=== PATIENT | male | born 1965 | race Caucasian/White ===

== ENCOUNTER 2020-11-08 13:00 | Outpatient (RCR) | payer OTHER, SELFPAY | END 2020-11-08 13:50 | disposition other institution (70) | LOC: HO.OT 13:00 | PROVIDERS: PCP Internal Medicine Geriatric Medicine; Visit Provider Emergency Medicine | DX: M65.9 Synovitis and tenosynovitis, unspecified (principal) | CPT/HCPCS: 97035; 97110; 97165 ==

== ENCOUNTER → 2022-07-31 15:29 | Outpatient (BNVA) | payer OTHER, SELFPAY | PROVIDERS: PCP Internal Medicine Geriatric Medicine; Visit Provider Urology | DX: R97.20 Elevated prostate specific antigen [PSA] (principal) | CPT/HCPCS: 99202 ==

== ENCOUNTER → 2022-09-11 13:17 | Outpatient (BNVA) | payer OTHER, SELFPAY | PROVIDERS: PCP Internal Medicine Geriatric Medicine; Visit Provider Urology | DX: R97.20 Elevated prostate specific antigen [PSA] (principal) | CPT/HCPCS: Q3014 ==

== ENCOUNTER 2022-11-13 10:18 | Outpatient (REF) | payer OTHER, SELFPAY ==
[2022-11-13 12:23] LABS: PSA,Total (Free>4and<10) 5.26 ng/mL (0.00-4.00)
[2022-11-14 10:13] LABS: Free Prostate Spec Ag 0.8 ng/mL; Percent Free Prostate Spec Ag 18 % (calc) (>25); Prostate Specific Ag Total 4.5 ng/mL (< OR = 4.0)
== END 2022-11-13 10:19 | disposition home or self-care (01) ==
LOC: HO.10HDL 10:18
PROVIDERS: Visit Provider Urology
DX: Z12.5 Encounter for screening for malignant neoplasm of prostate (principal); R97.20 Elevated prostate specific antigen [PSA]
CPT/HCPCS: 36415; 84153; 84154

== ENCOUNTER 2022-11-15 11:12 | Outpatient (REF) | payer OTHER, SELFPAY ==
[2022-11-15 11:37] VITALS: BP 140/90; PULSE 84; RESP 16; TEMP 36.7; O2SAT 97
[2022-11-15 11:40] VITALS: BMI 37.5
--- NOTE | 2022-11-15 12:18 | W.PM.OPN ---
Operative Note Operative Note Date of Service: 11/15/22 Narrative: Preoperative diagnosis: Elevated PSA Postoperative diagnosis: Elevated PSA Procedure: 1. transrectal ultrasound measurement of prostate 2. transrectal ultrasound-guided pudendal nerve block 3. transrectal ultrasound-guided prostate biopsy 12 core Surgeon: Dr. Reggie Scott Anesthetic: Local Indications for procedure: Elevated PSA 5.2 Procedure: After informed consent was verified, the patient was brought into the procedure area and lay left-hand side down on the table. Patient identity confirmed. Perioperative antibiotics confirmed. Safety pause time out performed. SHARON performed to dilate rectal sphincter Iodine 10cc with Gel was placed per rectum Ultrasound probe was placed per rectum The prostate was measured in 3 dimensions Total volume equals 65 gm No cystic structures were noted No calcifications were noted at the surgical margin The prostate was otherwise heterogenous on left side An ultrasound-guided pudendal nerve block was performed using 10 cc of 1% lidocaine. 8 cc was placed at the base and 2 cc of the apex. A 12 core biopsy was performed with 6 cores each side. Two cores were taken at the apex, mid and base. Cores were spaced between lateral and medial. He tolerated the procedure well. Was able to ambulate to bathroom after 5 minutes. Printed instructions regarding antibiotic use and common side effects such as low-grade temperature, potential infection and bleeding were given Pathology: 12 core prostate biopsy.
[2022-11-15 12:20] VITALS: BP 163/82; PULSE 88; RESP 16; O2SAT 97
== END 2022-11-15 11:13 | disposition home or self-care (01) ==
LOC: HO.MS 11:12
PROVIDERS: PCP Internal Medicine Geriatric Medicine; Visit Provider Urology
PROC: (CPT 55700; principal; 2022-11-15 12:00)
DX: R97.20 Elevated prostate specific antigen [PSA] (principal)
CPT/HCPCS: 55700; 76942; 88305; 88344

== ENCOUNTER → 2022-11-22 11:21 | Outpatient (BNVA) | payer OTHER, SELFPAY | PROVIDERS: PCP Internal Medicine Geriatric Medicine; Visit Provider Urology | DX: R97.20 Elevated prostate specific antigen [PSA] (principal) | CPT/HCPCS: Q3014 ==

== ENCOUNTER 2023-03-11 14:13 | Outpatient (REF) | payer OTHER, SELFPAY ==
[2023-03-11 16:18] LABS: Estimated Average Glucose 128 mg/dL; Hemoglobin A1c % 6.1 % (<6.0)
[2023-03-11 16:26] LABS: Alanine Aminotransferase 25 U/L (0-40); Albumin Level 4.4 g/dL (3.5-5.0); Alkaline Phosphatase 60 U/L (39-117); Anion Gap 13 (12-20); Aspartate Amino Transferase 18 U/L (5-37); Bilirubin Total 0.8 mg/dL (0.0-1.0); Blood Urea Nitrogen 15 mg/dL (9-16); Calcium 9.8 mg/dL (8.4-10.2); Carbon Dioxide 26 mmol/L (22-29); Chloride 106 mmol/L (96-108); Estimated Glomerular Filt Rate > 60; Glucose Random 132 mg/dL (60-115); Potassium 4.2 mmol/L (3.3-5.1); Sodium 141 mmol/L (135-145)
[2023-03-11 17:12] LABS: Creatinine Urine 102.92 mg/dL; Microalbum/Creatinine Ratio Ur 30.1 ug/mg cr (<30)
== END 2023-03-11 14:14 | disposition home or self-care (01) ==
LOC: HO.HHCL 14:13
PROVIDERS: Visit Provider Internal Medicine Geriatric Medicine
DX: E11.9 Type 2 diabetes mellitus without complications (principal); N40.0 Benign prostatic hyperplasia without lower urinary tract symptoms; H91.93 Unspecified hearing loss, bilateral; N53.19 Other ejaculatory dysfunction; R09.82 Postnasal drip; Z79.4 Long term (current) use of insulin; Z79.899 Other long term (current) drug therapy
CPT/HCPCS: 36415; 80053; 82043; 82570; 83036

== ENCOUNTER 2023-05-20 14:15 | Outpatient (REF) | payer OTHER, SELFPAY ==
[2023-05-20 18:22] LABS: PSA,Total (Free>4and<10) 5.72 ng/mL (0.00-4.00)
[2023-05-23 11:03] LABS: Free Prostate Spec Ag 0.4 ng/mL; Percent Free Prostate Spec Ag 8 % (calc) (>25); Prostate Specific Ag Total 5.1 ng/mL (< OR = 4.0)
== END 2023-05-20 14:16 | disposition home or self-care (01) ==
LOC: HO.LAB 14:15
PROVIDERS: Visit Provider Urology
DX: R97.20 Elevated prostate specific antigen [PSA] (principal); Z12.5 Encounter for screening for malignant neoplasm of prostate
CPT/HCPCS: 36415; 84153; 84154

== ENCOUNTER 2023-05-22 11:26 | Outpatient (AMB) | payer OTHER, SELFPAY ==
--- NOTE | 2023-05-22 11:38 | MHC.OFFVIS ---
Intake Intake Visit Reasons: 6m/PSA(set) Intake Note: Patient is Present for Follow Up psa Urology Medication: Finasteride, Tamsulosin Antibiotic Allergies: Penicillin Blood Thinners: Aspirin Allergies penicillamine Allergy (Unknown, Verified 05/22/23 11:42) hives penicillin G procaine Allergy (Unknown, Verified 05/22/23 11:42) hives penicillin V Allergy (Unknown, Verified 05/22/23 11:42) hives Penicillins [PENICILLINS] Allergy (Unknown, Verified 05/22/23 11:42) HIVES Medication List - Last Reconciled 05/22/23 by Reggie Scott MD aspirin (Adult Low Dose Aspirin) 81 mg PO DAILY blood sugar diagnostic (FreeStyle Lite Strips) As directed bupropion HCl 300 mg PO QAM buspirone 15 mg PO BID diazepam (Valium) 2 mg PO DAILY finasteride 5 mg PO DAILY 90 days hydroxyzine HCl 10 mg PO ONCE lancets (FreeStyle Lancets) As directed levofloxacin 500 mg PO daily 3 days losartan 50 mg PO DAILY metformin 1,000 mg PO BID multivitamin 1 tab PO DAILY omega 2-nmt-ouw-fish oil 1,000 mg (120 mg-180 mg) (Fish Oil) 1 cap PO DAILY omega-3 fatty acids-fish oil 360-1,200 mg caps PO pravastatin 80 mg PO BEDTIME tamsulosin 0.4 mg PO DAILY HPI HPI Comments History of Present Illness Details Hira is a pleasant male. He is a patient of Dr. Farley He is seen for the following urologic conditions - elevated PSA - BPH Biopsy no evidence of cancer PSA has fallen to 5.7 Keep on finasteride and repeat in 6 months Has stopped tamsulosin secondary to retrograde ejaculation Elevated PSA He presents for - follow-up evaluation of elevated PSA Lower Urinary Tract Symptoms - minimal. Had been present when diagnosed with diabetes and had nocturia with frequency Investigations include - PSA - 04/07 5.1, 09/06 15, 06/08 5.7 - SHARON 2+ - a transrectal ultrasound none - a prostate MRI none - TRUS Biopsy - 11/06 BPH Individualized Prostate Cancer Risk Calculator - PCPT Calculator Family history - father and brother Associated conditions include - diabetes, dyslipidemia Therapeutic plan will be - 6m f/u PSA PFS Medical History Tubular adenoma of colon Polyneuropathy MOIZ (obstructive sleep apnea) Family hx of prostate cancer Diabetes mellitus, type II History of elevated prostate specific antigen (PSA) Review of Systems Const Denies chills and Denies fever(s) Card Reports no additional complaints and Denies syncope Resp Denies cough GI Denies abdominal pain and Denies heartburn Reports as per HPI and Denies change in libido Neuro Denies syncope Psych Denies change in libido Endo Denies change in libido Physical Exam Const General: cooperative, healthy appearing, comfortable and no acute distress Orientation/consciousness: patient oriented x3 HEENT Face and sinus: Yes normal facial exam Mouth: moist mucous membranes Neck Neck: Yes normal visual inspection, Yes full ROM and Yes trachea midline Chest Chest palpation & inspection: normal inspection of the chest Resp Effort & Inspection: normal respiratory effort, able to speak in complete sentences and no respiratory distress GI Inspection: Yes normal to inspection Back/Spine/Pelvis Cervical Spine: normal cervical lordosis Thoracic/Lumbar Spine: thoracic and lumbar spine normal to inspection Skin General skin exam: no rashes or lesions noted Neuro General: patient oriented x3, gait normal, tone normal and moves all extremities Extrem General: Yes normal to inspection and Yes capillary refill normal Assessment & Plan Assessment & Plan (1) Elevated PSA: Code(s): R97.20 - Elevated prostate specific antigen [PSA] Plan Six month follow-up PSA Orders: Orders Prostate Specific Antigen 05/20/23 R97.20 - Elevated prostate specific antigen [PSA] PSA,Total (Free>4and<10) 6 Months R97.20 - Elevated prostate specific antigen [PSA] Medications: Refilled finasteride 5 mg PO DAILY 90 tabs 1RF 90 days N13.8 - Other obstructive and reflux uropathy, N40.1 - Benign prostatic hyperplasia with lower urinary tract symptoms, R33.9 - Retention of urine, unspecified, R97.20 - Elevated prostate specific antigen [PSA] Patient Instructions: Imaging studies, laboratory and physical exam results were discussed and reviewed in detail. No major barriers to patient understanding were identified. An opportunity to ask questions regarding the treatment plan was provided. All questions were answered. The patient expressed understanding and agreement with the above treatment plan. The patient is aware they should contact our office by phone for worsening of their current condition or the appearance of new urologic symptoms. Compliance is encouraged with any medications and followup testing that is ordered. It is a privilege to participate in the urologic care of your patient. If you have any questions or concerns regarding treatment for the above conditions, or other urologic issues, please do not hesitate to contact me. The office telephone contact is [phone]. This note is constructed using voice recognition software. While every effort has been made to ensure accuracy transportation superintendent errors may have been included. Yours sincerely, Dr Reggie Scott MD, [facility] - Urology Providers of Expert, Compassionate Care for the Genitourinary System Coding Level of Care Code Est Pt Level 3 (46723) Diagnoses Elevated PSA R97.20
== END 2023-05-22 12:21 | disposition home or self-care (01) ==
PROVIDERS: PCP Internal Medicine Geriatric Medicine; Visit Provider Urology
DX: R97.20 Elevated prostate specific antigen [PSA] (principal)
CPT/HCPCS: 99213

== ENCOUNTER → 2023-05-22 11:26 | Outpatient (BNVA) | payer OTHER, SELFPAY | PROVIDERS: PCP Internal Medicine Geriatric Medicine; Visit Provider Urology | DX: R97.20 Elevated prostate specific antigen [PSA] (principal) | CPT/HCPCS: 99212 ==

== ENCOUNTER 2023-11-08 10:56 | Outpatient (REF) | payer OTHER, SELFPAY ==
[2023-11-08 13:20] LABS: MANUAL DIFF FLAG NO
[2023-11-08 13:25] LABS: Basophils Percent Auto 0.4 % (0-2); Eosinophils Absolute Auto 0.1 X10*3/uL (0.0-0.4); Eosinophils Percent Auto 1.4 % (0-4); Hematocrit 45.5 % (42.0-52.0); Hemoglobin 14.7 g/dl (14.0-18.0); Imm Gran Abs Auto 0.03 X10*3/uL (0.00-0.03); Imm Gran Pct Auto 0.3 % (0.0-0.4); Lymphocytes Absolute Auto 1.7 X10*3/uL (1.2-4.9); Lymphocytes Percent Auto 18.3 % (20-40); Mean Corpuscular HGB Conc 32.3 g/dl (31.0-36.0); Mean Corpuscular Hemoglobin 29.6 pg (27.0-33.0); Mean Corpuscular Volume 91.7 fL (80.0-98.0); Mean Platelet Volume 11.6 fL (9.4-12.4); Monocytes Absolute Auto 0.7 X10*3/uL (0.1-1.2); Monocytes Percent Auto 7.2 % (2-11); Neutrophils Absolute Auto 6.8 x10*3/uL (2.0-8.3); Neutrophils Percent Auto 72.4 % (45-73); Platelet Count 240 X10*3/uL (160-400); Red Blood Count 4.96 X10*6/uL (4.60-5.80); Red Cell Distribution Width 13.2 % (11.0-16.0); White Blood Count 9.3 X10*3/uL (4.8-10.8)
[2023-11-08 13:46] LABS: Alanine Aminotransferase 33 U/L (0-40); Albumin Level 4.4 g/dL (3.5-5.0); Alkaline Phosphatase 62 U/L (39-117); Anion Gap 13 (12-20); Aspartate Amino Transferase 21 U/L (5-37); Bilirubin Total 1.3 mg/dL (0.0-1.0); Blood Urea Nitrogen 11 mg/dL (9-16); Calcium 9.8 mg/dL (8.4-10.2); Carbon Dioxide 27 mmol/L (22-29); Chloride 104 mmol/L (96-108); Cholesterol 123 mg/dL (<200); Estimated Glomerular Filt Rate > 60; Glucose Random 132 mg/dL (60-115); HDL Cholesterol 42 mg/dL (>40); LDL Cholesterol Calculated 47 mg/dL (<100); Potassium 4.1 mmol/L (3.3-5.1); Sodium 140 mmol/L (135-145); Triglycerides 170 mg/dL (<150)
[2023-11-08 14:00] LABS: Creatinine Urine 50.81 mg/dL; Microalbum/Creatinine Ratio Ur 29.5 ug/mg cr (<30)
[2023-11-08 14:03] LABS: PSA,Total (Free>4and<10) 8.16 ng/mL (0.00-4.00)
[2023-11-12 14:28] LABS: Free Prostate Spec Ag 0.7 ng/mL; Percent Free Prostate Spec Ag 10 % (calc) (>25); Prostate Specific Ag Total 7.1 ng/mL (< OR = 4.0)
== END 2023-11-08 10:57 | disposition home or self-care (01) ==
LOC: HO.HHCL 10:56
PROVIDERS: Urology; Visit Provider Internal Medicine Geriatric Medicine
DX: Z12.5 Encounter for screening for malignant neoplasm of prostate (principal); E11.40 Type 2 diabetes mellitus with diabetic neuropathy, unspecified; E11.42 Type 2 diabetes mellitus with diabetic polyneuropathy; R97.20 Elevated prostate specific antigen [PSA]
CPT/HCPCS: 36415; 80053; 80061; 82043; 82570; 84153; 84154; 85025

== ENCOUNTER 2023-11-19 11:18 | Outpatient (AMB) | payer OTHER, SELFPAY ==
--- NOTE | 2023-11-19 11:19 | A.OFFVIS_ITS ---
Intake Visit Reasons: 6m/PSA(set) Intake Note: Patient is Present for Telephone Follow Up For Urology Med: Finasteride (No longer on Tamsulosin) Antibiotic Allergy:Penicillins Blood Thinner: Aspirin Allergies penicillamine Allergy (Unknown, Verified 11/19/23 11:20) hives penicillin G procaine Allergy (Unknown, Verified 11/19/23 11:20) hives penicillin V Allergy (Unknown, Verified 11/19/23 11:20) hives Penicillins [PENICILLINS] Allergy (Unknown, Verified 11/19/23 11:20) HIVES Medication List - Last Reconciled 11/19/23 by Reggie Scott MD aspirin (Adult Low Dose Aspirin) 81 mg PO DAILY blood sugar diagnostic (FreeStyle Lite Strips) As directed bupropion HCl XL 300 mg PO QAM buspirone 15 mg PO BID finasteride 5 mg PO DAILY 90 days hydroxyzine HCl 10 mg PO ONCE lancets (FreeStyle Lancets) As directed losartan 50 mg PO DAILY metformin 1,000 mg PO BID multivitamin 1 tab PO DAILY omega 3-nrs-wms-fish oil 1,000 mg (120 mg-180 mg) (Fish Oil) 1 cap PO DAILY omega-3 fatty acids-fish oil 360-1,200 mg caps PO pravastatin 80 mg PO BEDTIME tamsulosin 0.4 mg PO DAILY HPI Comments Details: Hira is a pleasant male. He is a patient of Dr. Farley He is seen for the following urologic conditions - elevated PSA - lower urinary tract symptoms Telemedicine Evaluation 15 min Consultation Doximity Marilee Video Prior biopsy no evidence of cancer Last PSA 7.1 10% Recommend 4 month follow-up PSA with prostate MRI Elevated PSA He presents for - follow-up evaluation of elevated PSA Lower Urinary Tract Symptoms - minimal. Had been present when diagnosed with diabetes and had nocturia with frequency Investigations include - PSA - 04/07 5.1, 09/06 15, 06/08 5.7, 11/07 7.1 10% - SHARON 2+ - a transrectal ultrasound none - a prostate MRI none - TRUS Biopsy - 11/06 BPH 65gm Individualized Prostate Cancer Risk Calculator - PCPT Calculator Family history - father and brother Associated conditions include - diabetes, dyslipidemia Therapeutic plan will be - 6m f/u PSA PFSH Medical History Tubular adenoma of colon Polyneuropathy MOIZ (obstructive sleep apnea) Family hx of prostate cancer Diabetes mellitus, type II History of elevated prostate specific antigen (PSA) Review of Systems Const All systems reviewed & are unremarkable except as noted in HPI and below Reports no additional complaints Resp Reports no additional complaints GI Reports no additional complaints Reports as per HPI Musc Reports no additional complaints Physical Exam Telemedicine evaluation Appropriate responses Regular breathing rate and rhythm HEENT Head: Yes normal to inspection Ears: hearing grossly normal bilaterally Eyes General: appearance normal, both eyes and all related structures Neck Neck: Yes normal visual inspection Chest Chest palpation & inspection: normal inspection of the chest Resp Effort & Inspection: normal respiratory effort and able to speak in complete sentences Telehealth Telehealth Location of provider rendering services: practice address Location of patient: address on file Patient Identification confirmed using: Name, : Yes Telehealth method: video Patient verbally consented to treatment: Yes Patient verbally consented to billing insurance company: Yes Patient informed of any privacy concerns related to visit: Yes Assessment & Plan Assessment & Plan (1) Elevated PSA: Code(s): R97.20 - Elevated prostate specific antigen [PSA] Category: Medical (2) BPH w urinary obs/LUTS: Code(s): N40.1 - Benign prostatic hyperplasia with lower urinary tract symptoms; N13.8 - Other obstructive and reflux uropathy Category: Medical Plan Four month follow-up with MRI and labs Orders: Orders PSA,Total (Free>4and<10) 4 Months R97.20 - Elevated prostate specific antigen [PSA] Creatinine 4 Months R97.20 - Elevated prostate specific antigen [PSA] Blood Urea Nitrogen 4 Months R97.20 - Elevated prostate specific antigen [PSA] MR pelvis wo/w con 4 Months R97.20 - Elevated prostate specific antigen [PSA] Patient Instructions: Imaging studies, laboratory and physical exam results were discussed and reviewed in detail. No major barriers to patient understanding were identified. An opportunity to ask questions regarding the treatment plan was provided. All questions were answered. The patient expressed understanding and agreement with the above treatment plan. The patient is aware they should contact our office by phone for worsening of their current condition or the appearance of new urologic symptoms. Compliance is encouraged with any medications and followup testing that is ordered. It is a privilege to participate in the urologic care of your patient. If you have any questions or concerns regarding treatment for the above conditions, or other urologic issues, please do not hesitate to contact me. The office telephone contact is [phone]. This note is constructed using voice recognition software. While every effort has been made to ensure accuracy fastener technologist errors may have been included. Yours sincerely, Dr Reggie Scott MD, [facility] - Urology Providers of Expert, Compassionate Care for the Genitourinary System Coding Level of Care Code Tele Est Pt Level 3 (75823) Diagnoses Elevated PSA R97.20 BPH w urinary obs/LUTS N40.1; N13.8
== END 2023-11-19 12:03 | disposition home or self-care (01) ==
LOC: HO.HUSH 11:18
PROVIDERS: PCP Internal Medicine Geriatric Medicine; Visit Provider Urology
DX: R97.20 Elevated prostate specific antigen [PSA] (principal); N40.1 Benign prostatic hyperplasia with lower urinary tract symptoms; N13.8 Other obstructive and reflux uropathy
CPT/HCPCS: 99213

== ENCOUNTER → 2023-11-19 11:18 | Outpatient (BNVA) | payer OTHER, SELFPAY | PROVIDERS: PCP Internal Medicine Geriatric Medicine; Visit Provider Urology ==

== ENCOUNTER 2023-11-20 11:25 | Outpatient (REF) | payer OTHER, SELFPAY ==
--- NOTE | ~2023-11-20 | XR_ITS ---
EXAMINATION: XR LEFT HIP XR PELVIS CLINICAL INFORMATION: Left hip and groin pain. COMPARISON: None available. TECHNIQUE: AP view of the pelvis. 2 views of the left hip. FINDINGS: LEFT HIP: Mild osteoarthritic changes left hip with joint space narrowing and hypertrophic change. Alignment maintained. Limited visualization due to body habitus. Small rounded pelvic calcifications are likely vascular. AP PELVIS: Mild osteoarthritic changes in the bilateral hips. Degenerative changes in the bilateral sacroiliac joints. Advanced degenerative changes in the imaged lower lumbar spine. Pubic symphysis is maintained. Small pelvic calcifications are likely vascular. XR/XR hip LT min 2V IMPRESSION: 1. Mild osteoarthritic changes in the left hip. 2. Advanced degenerative changes in the imaged lower lumbar spine. 3. Additional imaging with CT scan or MRI should be considered for better visualization as these modalities are much more sensitive for detection of fracture or other underlying pathology.
--- NOTE | ~2023-11-20 | XR_ITS ---
EXAMINATION: XR LEFT HIP XR PELVIS CLINICAL INFORMATION: Left hip and groin pain. COMPARISON: None available. TECHNIQUE: AP view of the pelvis. 2 views of the left hip. FINDINGS: LEFT HIP: Mild osteoarthritic changes left hip with joint space narrowing and hypertrophic change. Alignment maintained. Limited visualization due to body habitus. Small rounded pelvic calcifications are likely vascular. AP PELVIS: Mild osteoarthritic changes in the bilateral hips. Degenerative changes in the bilateral sacroiliac joints. Advanced degenerative changes in the imaged lower lumbar spine. Pubic symphysis is maintained. Small pelvic calcifications are likely vascular. XR/XR pelvis 1-2V IMPRESSION: 1. Mild osteoarthritic changes in the left hip. 2. Advanced degenerative changes in the imaged lower lumbar spine. 3. Additional imaging with CT scan or MRI should be considered for better visualization as these modalities are much more sensitive for detection of fracture or other underlying pathology.
== END 2023-11-20 11:26 | disposition home or self-care (01) ==
LOC: HO.HHCX 11:25
PROVIDERS: Visit Provider Emergency Medicine
DX: R10.32 Left lower quadrant pain (principal); M25.552 Pain in left hip
CPT/HCPCS: 72170; 73502

== ENCOUNTER 2023-12-26 11:10 | Outpatient (AMB) | payer OTHER, SELFPAY ==
--- NOTE | 2023-12-26 11:13 | MHC.OFFVIS ---
Vital Signs 12/26/23 11:19 Height 5 ft 9 in Weight 245 lb BMI 36.2 Intake Visit Reasons: N/P left groin pain, left hip pain. Intake Note: Otilio a year with off and on pain. No hx of previous treatment. He expresses that his pain comes in different times. Allergies penicillamine Allergy (Unknown, Verified 12/26/23 11:17) hives penicillin G procaine Allergy (Unknown, Verified 12/26/23 11:17) hives penicillin V Allergy (Unknown, Verified 12/26/23 11:17) hives Penicillins [PENICILLINS] Allergy (Unknown, Verified 12/26/23 11:17) HIVES HPI HPI N/P left groin pain, left hip pain.: Details: 58-year-old male who presents in the office today, as a new patient, for an evaluation of left hip pain. The patient was seen in the [facility] on 11/20/2023 with a complaint of left hip pain that had been present for two years, since 2021. X-rays were ordered and he was prescribed acetaminophen 500 mg PO Q6H PRN for pain.? ? ? While in the office today, the patient reports intermittent pain for a year, since 2022. He denies any prior treatment. He expresses his pain is present at different times.? FORMERLY [facility], [facility] Medical History Tubular adenoma of colon Polyneuropathy MOIZ (obstructive sleep apnea) Family hx of prostate cancer Diabetes mellitus, type II History of elevated prostate specific antigen (PSA) Social History (Updated 12/26/23 @ 11:18 by Emma Mcgrath) Alcohol intake: never Patient Tobacco Use Status: Never used Tobacco Substance Use Type: Marijuana Current occupational status: disabled Review of Systems Const All systems reviewed & are unremarkable except as noted in HPI and below Physical Exam Vital Signs: BMI result Body Mass Index 36.2 Const General: cooperative and no acute distress Orientation/consciousness: patient oriented x3 Resp Effort & Inspection: normal respiratory effort and able to speak in complete sentences Cardio Peripheral pulses: Peripheral pulses 2+ throughout Skin General skin exam: no rashes or lesions noted Neuro General: patient oriented x3 Extrem Other: Left hip: Normal to inspection. No ecchymosis, erythema, or edema. Full hip ROM in all planes. Groin pain with internal and external rotation. No tenderness to palpation over the greater trochanteric bursa. 5/5 strength with resisted hip flexion, knee extension, abduction, and abduction. Able to perform straight leg raise. NVI.? ? Assessment & Plan Assessment & Plan (1) Osteoarthritis of left hip: Code(s): M16.12 - Unilateral primary osteoarthritis, left hip Category: Medical Plan Mr. Ivey is a 58-year-old male who presents in the office today, as a new patient, for an evaluation of left hip pain. The patient was seen in the [facility] on 11/20/2023 with a complaint of left hip pain that had been present for two years, since 2021. X-rays were ordered and he was prescribed acetaminophen 500 mg PO Q6H PRN for pain.? ? ? While in the office today, the patient reports intermittent pain for a year, since 2022. He denies any prior treatment. He expresses his pain is present at different times.? ? We discussed the role of intra-articular cortisone injections to be performed at the hospital. He would like to proceed with this, and an order was made in the office today. I would like the patient to follow-up for a telehealth visit in 6 weeks to see how he is feeling after the injection. Follow-up will be in 6 weeks via telehealth, or sooner if needed. ? ? X-rays of the left hip and pelvis, obtained on 11/20/2023, revealed:? LEFT HIP: Mild osteoarthritic changes left hip with joint space? narrowing and hypertrophic change. Alignment maintained. Limited? visualization due to body habitus. Small rounded pelvic calcifications? are likely vascular.? ? AP PELVIS: Mild osteoarthritic changes in the bilateral hips.? Degenerative changes in the bilateral sacroiliac joints. Advanced? degenerative changes in the imaged lower lumbar spine. Pubic symphysis?is maintained.? ? Small pelvic calcifications are likely vascular.? Orders: Orders FL arthrogram hip LT Today M16.12 - Unilateral primary osteoarthritis, left hip Patient Instructions: Scribed by Fanta Cox medical communication specialist, for Diana Lopez PA-C on 12/26/2023 at 11:21 am, EST.? Coding Level of Care Code New Pt Level 4 (60650) Diagnoses Osteoarthritis of left hip M16.12
[2023-12-26 11:19] VITALS: BMI 36.2
== END 2023-12-26 11:41 | disposition home or self-care (01) ==
PROVIDERS: PCP Internal Medicine Geriatric Medicine; Visit Provider Physician Assistant
DX: M16.12 Unilateral primary osteoarthritis, left hip (principal)
CPT/HCPCS: 99203

== ENCOUNTER → 2023-12-26 11:10 | Outpatient (BNVA) | payer OTHER, SELFPAY | PROVIDERS: PCP Internal Medicine Geriatric Medicine; Visit Provider Physician Assistant | DX: M16.12 Unilateral primary osteoarthritis, left hip (principal) | CPT/HCPCS: 99202 ==

== ENCOUNTER 2024-01-08 13:02 | Outpatient (REF) | payer OTHER, SELFPAY ==
--- NOTE | ~2024-01-08 | FL_ITS ---
FLUOROSCOPIC LEFT HIP INTRA-ARTICULAR STEROID INJECTION Indications: Left hip pain. Procedure: Risks and benefits and possible complications were discussed with the patient and the consent form was signed. The patient was placed hip on the fluoroscopy table. The left hip was prepped and draped in normal sterile fashion. 1% buffered lidocaine was used for anesthesia. A 22-gauge spinal needle was used to access the hip joint. Intra-articular position of the needle within the hip joint was verified using 3 cc of Omnipaque 300. A total of 5 mL 1% lidocaine and 80 mg Depo-Medrol was then injected into the hip joint. The needle was then removed and a Band-Aid was applied to the injection site. The patient tolerated the procedure well. There were no immediate complications. FL/FL arthrogram hip LT Impression: Fluoroscopic left hip intra-articular steroid injection The procedure was performed by Jack Pichardo PA-C, and directly supervised by Dr. Fletcher.
== END 2024-01-08 13:03 | disposition home or self-care (01) ==
LOC: HO.XRAY 13:02
PROVIDERS: PCP Internal Medicine Geriatric Medicine; Visit Provider Physician Assistant
DX: M16.12 Unilateral primary osteoarthritis, left hip (principal)
CPT/HCPCS: 27093; 73525

== ENCOUNTER → 2024-01-08 13:03 | Outpatient (BNV) | payer OTHER, SELFPAY | PROVIDERS: PCP Internal Medicine Geriatric Medicine; Visit Provider Physician Assistant Surgical | DX: M16.12 Unilateral primary osteoarthritis, left hip (principal) | CPT/HCPCS: 20610; 77002 ==

== ENCOUNTER → 2024-02-03 13:54 | Outpatient (BNVA) | payer OTHER, SELFPAY | PROVIDERS: PCP Internal Medicine Geriatric Medicine; Visit Provider Surgery ==

== ENCOUNTER 2024-02-07 09:22 | Outpatient (AMB) | payer OTHER, SELFPAY ==
--- NOTE | 2024-02-07 09:22 | A.OFFVIS_ITS ---
Vital Signs 02/07/24 09:26 Height 5 ft 8 in Weight 261 lb BMI 39.7 Intake Visit Reasons: Tel- left hip pain 6 wk f/u Intake Note: Otilio is 58 year old male who presents today via over the phone for a follow up of his left hip pain. Patient states that his last arthrogram injection didn't give him relief. He states that his pain hasn't changed. Allergies penicillamine Allergy (Unknown, Verified 02/07/24 09:26) hives penicillin G procaine Allergy (Unknown, Verified 02/07/24 09:26) hives penicillin V Allergy (Unknown, Verified 02/07/24 09:26) hives Penicillins [PENICILLINS] Allergy (Unknown, Verified 02/07/24 09:26) HIVES HPI HPI Tel- left hip pain 6 wk f/u: Details: 58-year-old male who presents over the phone for a telehealth appointment regarding a follow-up of his left hip pain. I last saw the patient in the office on 12/26/23 when we discussed the role of an intra-articular injection to be done at the hospital. The patient underwent the injection on 01/08/24.? ? While on the phone today, the patient reports the intra-articular injection did not give him relief and states his pain has not changed. ? FORMERLY [facility] Medical History Tubular adenoma of colon Polyneuropathy MOIZ (obstructive sleep apnea) Family hx of prostate cancer Diabetes mellitus, type II History of elevated prostate specific antigen (PSA) Family History (Updated 02/05/24 @ 10:42 by Ramila Goodman [facility]) Mother Lung cancer Father Prostate cancer Sister Lung cancer Social History (Updated 12/26/23 @ 11:18 by Emma Mcgrath) Alcohol intake: never Patient Tobacco Use Status: Never used Tobacco Substance Use Type: Marijuana Current occupational status: disabled Review of Systems Const All systems reviewed & are unremarkable except as noted in HPI and below Physical Exam Vital Signs: BMI result Body Mass Index 39.7 Extrem Other: Deferred due to being a telehealth visit. Telehealth Telehealth Telehealth Platform: Telephone Location of provider rendering services: practice address Location of patient: address on file Patient Identification confirmed using: Name, : Yes Telehealth method: voice only Patient verbally consented to treatment: Yes Patient verbally consented to billing insurance company: Yes Patient informed of any privacy concerns related to visit: Yes Minutes spent on Phone/Video with Pt.: 10 Assessment & Plan Assessment & Plan (1) Osteoarthritis of left hip: Code(s): M16.12 - Unilateral primary osteoarthritis, left hip Category: Medical Plan Mr. Ivey is a 58-year-old male who presents over the phone for a telehealth appointment regarding a follow-up of his left hip pain. I last saw the patient in the office on 12/26/23 when we discussed the role of an intra-articular injection to be done at the hospital. The patient underwent the injection on 01/08/24.? ? While on the phone today, the patient reports the intra-articular injection did not give him relief and states his pain has not changed.? ? The patient reports having continued ?groin pull?. He reports after the injection was administered, he did not feel any relief but was unsure and later stated he may have had some relief. He confirms having issues with his lower back and states Urgent Care told him this could be contributing to his left hip pain, therefore, a referral for him to be further evaluated by Physiatry was made today. I recommended a referral to Physical therapy for treatment of left hip osteoarthritis. Follow-up with Orthopedics will be PRN, or sooner if needed. ? Orders: Orders PT Evaluation and Treatment Today M16.12 - Unilateral primary osteoarthritis, left hip Patient Instructions: Scribed by Fanta Cox director of graduate medical education, for Diana Lopez PA-C on 02/07/2024 at 9:30 am, EST.? Coding Level of Care Code Tele Est Pt Level 3 (07282) Diagnoses Osteoarthritis of left hip M16.12
[2024-02-07 09:26] VITALS: BMI 39.7
== END 2024-02-07 09:43 | disposition home or self-care (01) ==
LOC: HO.HOS 09:22
PROVIDERS: PCP Internal Medicine Geriatric Medicine; Visit Provider Physician Assistant
DX: M16.12 Unilateral primary osteoarthritis, left hip (principal)
CPT/HCPCS: 99213

== ENCOUNTER → 2024-02-07 09:22 | Outpatient (BNVA) | payer OTHER, SELFPAY | PROVIDERS: PCP Internal Medicine Geriatric Medicine; Visit Provider Physician Assistant ==

== ENCOUNTER → 2024-03-12 11:10 | Outpatient (BNVA) | payer OTHER, SELFPAY | PROVIDERS: PCP Internal Medicine Geriatric Medicine; Visit Provider Physical Medicine & Rehabilitation | DX: M16.12 Unilateral primary osteoarthritis, left hip (principal); M54.50 Low back pain, unspecified | CPT/HCPCS: 99202 ==

== ENCOUNTER → 2024-03-12 11:10 | Outpatient (AMB) | payer OTHER, SELFPAY ==
[2024-03-12 11:34] VITALS: BMI 39.7
--- NOTE | 2024-03-12 11:34 | MHC.OFFVIS ---
Vital Signs 03/12/24 11:34 Height 5 ft 8 in Weight 261 lb BMI 39.7 Intake Visit Reasons: New Pt - back pain Intake Note: Otilio is a 58 year old male who presents to the office today for a new patient visit for lower back pain, referred to us by JOÃO Del Cid. He is currently in PT for his hip. Patient states it is painful when he transitions from a sitting position to standing. He denies numbness or tingling at the back. He states his pain is localized to the lower back and feels this is contributing to his hip pain. Patient denies other injuries or surgeries to his back. He has not tried PT, injections, or topical creams for this pain. Patient states Tylenol provides some relief. Allergies penicillamine Allergy (Unknown, Verified 03/12/24 11:35) hives penicillin G procaine Allergy (Unknown, Verified 03/12/24 11:35) hives penicillin V Allergy (Unknown, Verified 03/12/24 11:35) hives Penicillins [PENICILLINS] Allergy (Unknown, Verified 03/12/24 11:35) HIVES Medication List - Last Reconciled 03/12/24 by Марина Smith MD aspirin (Adult Low Dose Aspirin) 81 mg PO DAILY blood sugar diagnostic (FreeStyle Lite Strips) As directed bupropion HCl XL 300 mg PO QAM buspirone 15 mg PO BID finasteride 5 mg PO DAILY 90 days hydroxyzine HCl 10 mg PO ONCE lancets (FreeStyle Lancets) As directed losartan 50 mg PO DAILY metformin 1,000 mg PO BID multivitamin 1 tab PO DAILY omega 1-kaf-kum-fish oil 1,000 mg (120 mg-180 mg) (Fish Oil) 1 cap PO DAILY omega-3 fatty acids-fish oil 360-1,200 mg caps PO pravastatin 80 mg PO BEDTIME tamsulosin 0.4 mg PO DAILY HPI Comments Details: Followed by ortho Diana MOYER for left hip pain. Referred to Physiatry for further evalution of back pain. He says pain is more left groin pain. When severe, extends to left lateral hip. Maybe some stiffness from left lower back but just mild compared to the hip. Denies numbness, foot drop or weakness. No bowel issues, but has BPH. Follows with Urology. Treatment done so far: hip injection physicaln therapy, ongoing, last week [facility] Medical History Tubular adenoma of colon Polyneuropathy MOIZ (obstructive sleep apnea) Family hx of prostate cancer Diabetes mellitus, type II History of elevated prostate specific antigen (PSA) Family History (Updated 02/05/24 @ 10:42 by Ramila Goodman CMA) Mother Lung cancer Father Prostate cancer Sister Lung cancer Social History (Updated 12/26/23 @ 11:18 by Emma Mcgrath) Alcohol intake: never Patient Tobacco Use Status: Never used Tobacco Substance Use Type: Marijuana Current occupational status: disabled Review of Systems Const All systems reviewed & are unremarkable except as noted in HPI and below Physical Exam Vital Signs: BMI result Body Mass Index 39.7 Constitutional: Patient appears to be in no acute distress, well nourished and well developed. Patient was appropriately conversant and oriented. Good historian. MSK: No specific abnormalities found on inspection of the spine and all extremities. No pain with palpation over the lumbar area. No tenderness over SI joint. No tenderness over GT. Lumbar ROM was full. Bilateral hip, knee and ankle ROM WNL. No ligamentous laxity or crepitance. No increased effusion. Straight-leg raising test negative. FABERE test negative. Strength is 5/5 in all muscle groups tested. No increased tone noted. Neurological: Neurologic examination of the upper and lower extremities was nonfocal with intact sensation, muscle stretch reflexes and without focal motor deficits . Herron?s negative bilaterally. Babinski was down going bilaterally. Clonus was negative. Gait is non-antalgic without loss of balance. Results Reviewed Results Reviewed: Date of Service: 11/20/23 Procedure(s): XR pelvis 1-2V Accession Number(s): [id number] cc: ALLISON FLORES MD~ EXAMINATION: XR LEFT HIP XR PELVIS CLINICAL INFORMATION: Left hip and groin pain. COMPARISON: None available. TECHNIQUE: AP view of the pelvis. 2 views of the left hip. FINDINGS: LEFT HIP: Mild osteoarthritic changes left hip with joint space narrowing and hypertrophic change. Alignment maintained. Limited visualization due to body habitus. Small rounded pelvic calcifications are likely vascular. AP PELVIS: Mild osteoarthritic changes in the bilateral hips. Degenerative changes in the bilateral sacroiliac joints. Advanced degenerative changes in the imaged lower lumbar spine. Pubic symphysis is maintained. Small pelvic calcifications are likely vascular. XR/XR pelvis 1-2V IMPRESSION: 1. Mild osteoarthritic changes in the left hip. 2. Advanced degenerative changes in the imaged lower lumbar spine. 3. Additional imaging with CT scan or MRI should be considered for better visualization as these modalities are much more sensitive for detection of fracture or other underlying pathology. I reviewed records from the following: Ortho Assessment & Plan Assessment & Plan (1) Osteoarthritis of left hip: Code(s): M16.12 - Unilateral primary osteoarthritis, left hip Category: Medical Qualifiers: Osteoarthritis type: primary Qualified Code(s): M16.12 - Unilateral primary osteoarthritis, left hip Plan His symptoms are left groin pain, consistent with left hip issue. No signs of lumbar radiculopathy or SI joint dysfunction on exam or history. No indication for lumbar imaging at this time, patient agrees. He can always call Physiatry if develops lower back pain or pain/numbness to leg. Assessment and plan discussed with patient, and patient was agreeable. All questions were answered thoroughly. Follow up as needed. Марина Smith MD, CODY Board Certified, [place] [employer] and Rehabilitation (ABPMR) Board Certified, [place] [employer] Electrodiagn[employer] (ABEM) Coding Level of Care Code New Pt Level 3 (10015) Diagnoses Primary osteoarthritis of left hip M16.12 Osteoarthritis type: primary
== END ==
PROVIDERS: PCP Internal Medicine Geriatric Medicine; Visit Provider Physical Medicine & Rehabilitation
DX: M16.12 Unilateral primary osteoarthritis, left hip (principal)
CPT/HCPCS: 99203

== ENCOUNTER 2024-03-18 11:28 | Outpatient (AMB) | payer OTHER, SELFPAY ==
--- NOTE | 2024-03-18 11:33 | A.OFFVIS_ITS ---
Intake Visit Reasons: 4m/MRI/labs(set) Intake Note: Patient is present for 4M/MRI/LABS Urology Medication:FINASTERIDE Antibiotic Allergy:PENICILLINS Blood Thinner:ASPIRIN TODAY'S PVR: 0ML'S Medical Staff Coordinator Required: No Allergies penicillamine Allergy (Unknown, Verified 03/18/24 11:35) hives penicillin G procaine Allergy (Unknown, Verified 03/18/24 11:35) hives penicillin V Allergy (Unknown, Verified 03/18/24 11:35) hives Penicillins [PENICILLINS] Allergy (Unknown, Verified 03/18/24 11:35) HIVES Medication List - Last Reconciled 03/18/24 by Reggie Scott MD aspirin (Adult Low Dose Aspirin) 81 mg PO DAILY blood sugar diagnostic (FreeStyle Lite Strips) As directed bupropion HCl XL 300 mg PO QAM buspirone 15 mg PO BID finasteride 5 mg PO DAILY 90 days hydroxyzine HCl 10 mg PO ONCE lancets (FreeStyle Lancets) As directed losartan 50 mg PO DAILY metformin 1,000 mg PO BID multivitamin 1 tab PO DAILY omega 6-mij-tsn-fish oil 1,000 mg (120 mg-180 mg) (Fish Oil) 1 cap PO DAILY omega-3 fatty acids-fish oil 360-1,200 mg caps PO pravastatin 80 mg PO BEDTIME HPI Comments Details: Hira is a pleasant male. He is a patient of Dr. 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 Had been present when diagnosed with diabetes and had nocturia with frequency Investigations include - PSA - 04/07 5.1, 09/06 15, 06/08 5.7, 11/07 7.1 10%, 03/10 15 - SHARON 2+ - a transrectal ultrasound none - a prostate MRI - 03/10 50 g prostate no abnormal lesions - TRUS Biopsy - 11/06 BPH 65gm Individualized Prostate Cancer Risk Calculator - PCPT Calculator Family history - father and brother Associated conditions include - diabetes, dyslipidemia Therapeutic plan will be - 6m f/u PSA PFSH Medical History Tubular adenoma of colon Polyneuropathy MOIZ (obstructive sleep apnea) Family hx of prostate cancer Diabetes mellitus, type II History of elevated prostate specific antigen (PSA) Family History (Updated 02/05/24 @ 10:42 by Ramila Goodman CMA) Mother Lung cancer Father Prostate cancer Sister Lung cancer Social History (Updated 12/26/23 @ 11:18 by Emma Mcgrath) Alcohol intake: never Patient Tobacco Use Status: Never used Tobacco Substance Use Type: Marijuana Current occupational status: disabled Review of Systems Const Denies chills and Denies fever(s) Card Reports no additional complaints and Denies syncope Resp Denies cough GI Denies abdominal pain and Denies heartburn Reports as per HPI and Denies change in libido Neuro Denies syncope Psych Denies change in libido Endo Denies change in libido Physical Exam Const General: cooperative, healthy appearing, comfortable and no acute distress Orientation/consciousness: patient oriented x3 HEENT Face and sinus: Yes normal facial exam Mouth: moist mucous membranes Neck Neck: Yes normal visual inspection, Yes full ROM and Yes trachea midline Chest Chest palpation & inspection: normal inspection of the chest Resp Effort & Inspection: normal respiratory effort, able to speak in complete sentences and no respiratory distress GI Inspection: Yes normal to inspection Back/Spine/Pelvis Cervical Spine: normal cervical lordosis Thoracic/Lumbar Spine: thoracic and lumbar spine normal to inspection Skin General skin exam: no rashes or lesions noted Neuro General: patient oriented x3, gait normal, tone normal and moves all extremities Extrem General: Yes normal to inspection and Yes capillary refill normal Office Procedures Post Void Residual Post Residual Void Post Void Residual (PVR): 0 [id number] Void Residual by ultrasound Assessment & Plan Assessment & Plan (1) BPH w urinary obs/LUTS: Code(s): N40.1 - Benign prostatic hyperplasia with lower urinary tract symptoms; N13.8 - Other obstructive and reflux uropathy Category: Medical (2) Elevated PSA: Code(s): R97.20 - Elevated prostate specific antigen [PSA] Category: Medical Plan Six-month follow-up PSA Orders: Orders PSA,Total (Free>4and<10) 6 Months R97.20 - Elevated prostate specific antigen [PSA] Patient Instructions: Imaging studies, laboratory and physical exam results were discussed and reviewed in detail. No major barriers to patient understanding were identified. An opportunity to ask questions regarding the treatment plan was provided. All questions were answered. The patient expressed understanding and agreement with the above treatment plan. The patient is aware they should contact our office by phone for worsening of their current condition or the appearance of new urologic symptoms. Compliance is encouraged with any medications and followup testing that is ordered. It is a privilege to participate in the urologic care of your patient. If you have any questions or concerns regarding treatment for the above conditions, or other urologic issues, please do not hesitate to contact me. The office telephone contact is [phone]. This note is constructed using voice recognition software. While every effort has been made to ensure accuracy surgical clinical reviewer errors may have been included. Yours sincerely, Dr Reggie Scott MD, CODY [facility] - Urology Providers of Expert, Compassionate Care for the Genitourinary System Coding Level of Care Code Est Pt Level 3 (34538) Diagnoses BPH w urinary obs/LUTS N40.1; N13.8 Elevated PSA R97.20 CPT Codes Post Residual Void - PVR CPT Code: 69819-Tikm Void Residual by ultrasound ([id number])
== END 2024-03-18 12:14 | disposition home or self-care (01) ==
PROVIDERS: PCP Internal Medicine Geriatric Medicine; Visit Provider Urology
DX: N40.1 Benign prostatic hyperplasia with lower urinary tract symptoms (principal); N13.8 Other obstructive and reflux uropathy; R97.20 Elevated prostate specific antigen [PSA]
CPT/HCPCS: 99213

== ENCOUNTER → 2024-03-18 11:28 | Outpatient (BNVA) | payer OTHER, SELFPAY | PROVIDERS: PCP Internal Medicine Geriatric Medicine; Visit Provider Urology | DX: N40.1 Benign prostatic hyperplasia with lower urinary tract symptoms (principal); N13.8 Other obstructive and reflux uropathy; R97.20 Elevated prostate specific antigen [PSA] | CPT/HCPCS: 51798; 99212 ==

== ENCOUNTER 2024-03-23 15:00 | Outpatient (RCR) | payer OTHER, SELFPAY ==
--- NOTE | 2024-02-26 15:24 | MHC.PT.EP ---
[facility] [place] Office [place] Office [place] Office [address] [phone] F: [phone] F: [phone] F: [phone] F: [phone] Physical Therapy Plan of Care Date of Evaluation: 02/26/24 Date of Surgery: Diagnosis: L hip pain; OA Assessment: Patient is a 58 y.o. male who is referred to PT by Diana Lopez PA-C with Dx of LEFT hip osteoarthritis. Patient impairments include L hip/groin area pain, limited L hip ROM, weakness L hip and core musculature, antalgic gait and labored transfers. Testing of his low back does not elicit familiar pain. Patient current functional limitations are prolonged sitting, unable to stand for more than 10 mins, unable to walk long distances due to hip pain. Patient will benefit from skilled PT to address aforementioned impairments and functional limitations to meet established goals. Frequency and Duration: The patient will be seen 1-2x/week for 4 weeks Short Term Goals: 2 weeks Patient demonstrates consistency and independence with HEP to self manage symptoms. Server Goals: 4 weeks Patient presents with increased R hip flexion strength 4+/5 to be able to stand for 15 mins to wash dishes. Patient presents with increased R hip flexion 100 degrees to be able to perform sit to stand after prolonged sitting without sxs. Treatment Plan: Modalities to reduce pain, spasms and effusion. Manual therapy to restore motion and function. Therapeutic exercise to improve strength and flexibility. Neuromuscular re-education for posture and balance. Therapeutic activities to return to functional activities of daily living. Electronically signed by: Eboni Saucedo, PT, DPT Please sign and return to therapist. Thank you for your referral.
--- NOTE | 2024-05-08 10:08 | MHC.PT.DC ---
[facility] [place] Office [place] Office [place] Office [address] Patito Goldstein [address] [phone] F: [phone] F: [phone] F: [phone] F: [phone] Physical Therapy Discharge Report Diagnosis: L hip pain; OA Date of Surgery: Date of Evaluation: 02/26/24 Date of Discharge: 05/08/24 Treatments to Date: 4 Cancellations to Date: 1 No Shows to Date: 0 Discharge Status: Improved Function Independent with HEP Patient Elected to Stop Discharge Summary: Pt was last treated in PT on 03/23/24, the assessment reads, He needed cues throughout session for neutral lumbar posture. We discuss looking in the mirror at home for cues on posture, standing with book on his head for posture or just standing as tall as he can and lifting head up to look at object straight ahead to ensure neutral spine. He c/o fatigue in L glutes with exercises but no pain. He ceased attending PT after this session on his own accord, but was reporting some progress in his familiar symptoms. Electronically signed by: Eboni Saucedo, PT, DPT Please sign and return to therapist. Thank you for your referral.
== END 2024-05-08 10:08 | disposition home or self-care (01) ==
LOC: HO.PT 15:00
PROVIDERS: PCP Internal Medicine Geriatric Medicine; Visit Provider Physician Assistant
DX: M16.12 Unilateral primary osteoarthritis, left hip (principal)
CPT/HCPCS: 97110; 97161; 97530

== ENCOUNTER 2024-04-10 09:23 | Outpatient (AMB) | payer OTHER, SELFPAY ==
--- NOTE | 2024-04-10 09:28 | A.OFFVIS_ITS ---
Intake Visit Reasons: OV-left hip pain-one month follow up Intake Note: Otilio is a 58 year old male who presents to the office today for left hip pain- one month follow up. Pt states he is feeling a bit better, with some presents of pain. He mentions that PT did give him mild relief and he has been practicing his PT exercises at home. Allergies penicillamine Allergy (Unknown, Verified 04/10/24 09:34) hives penicillin G procaine Allergy (Unknown, Verified 04/10/24 09:34) hives penicillin V Allergy (Unknown, Verified 04/10/24 09:34) hives Penicillins [PENICILLINS] Allergy (Unknown, Verified 04/10/24 09:34) HIVES HPI HPI OV-left hip pain-one month follow up: Details: 58-year-old male who presents in the office today for a follow-up of the left hip pain. I last saw the patient via telehealth appointment on 02/07/24 when he reported mild to no relief from the intra-articular injection, which was received on 01/08/24. He was referred to Physiatry and also to physical therapy for further treatment. While in the office today, the patient reports experiencing left hip pain; however, he mentions mild improvement in his pain. He mentions mild pain relief from physical therapy. He states he is also doing PT exercises at home. [facility] Medical History Tubular adenoma of colon Polyneuropathy MOIZ (obstructive sleep apnea) Family hx of prostate cancer Diabetes mellitus, type II History of elevated prostate specific antigen (PSA) Family History (Updated 02/05/24 @ 10:42 by Ramila Goodman [facility]) Mother Lung cancer Father Prostate cancer Sister Lung cancer Social History Alcohol intake: never Patient Tobacco Use Status: Never used Tobacco Substance Use Type: Marijuana Current occupational status: disabled Review of Systems Const All systems reviewed & are unremarkable except as noted in HPI and below Physical Exam Const General: cooperative, healthy appearing and no acute distress Resp Effort & Inspection: normal respiratory effort and able to speak in complete sentences Cardio Rate: regular rate Peripheral pulses: Peripheral pulses 2+ throughout GI Palpation (GI): Soft to palpation Skin Lesions: no lesions Rashes: no rashes Extrem Other: Left hip: Normal to inspection. No ecchymosis, erythema, or edema. Full hip ROM in all planes. Groin pain with internal and external rotation. No tenderness to palpation over the greater trochanteric bursa. 5/5 strength with resisted hip flexion, knee extension, abduction, and abduction. Able to perform straight leg raise. NVI.? ? Assessment & Plan Assessment & Plan (1) Osteoarthritis of left hip: Code(s): M16.12 - Unilateral primary osteoarthritis, left hip Category: Medical Qualifiers: Osteoarthritis type: primary Qualified Code(s): M16.12 - Unilateral primary osteoarthritis, left hip Plan Mr. Ivey is a 58-year-old male who presents in the office today for a follow-up of the left hip pain. I last saw the patient via telehealth appointment on 02/07/24 when he reported mild to no relief from the intra-articular injection, which was received on 01/08/24. He was referred to Physiatry and also to physical therapy for further treatment. While in the office today, the patient reports experiencing left hip pain; however, he mentions mild improvement in his pain. He mentions mild pain relief from physical therapy. He states he is also doing PT exercises at home. The patient would like to have a repeat intra-articular cortisone injection in the left hip. Therefore, an order was placed in the office today for an ultrasound guided intra-articular injection. Further recommendation would be with either Dr. Cardoso or Pain Management. Follow-up will be PRN, or sooner if needed. Orders: Orders FL arthrogram hip LT Today M16.12 - Unilateral primary osteoarthritis, left hip Patient Instructions: Scribed by Cinda Clemons medical diagnostic radiographer, for Diana Lopez PA-C on 04/10/24 at 9:43 am EST. Coding Level of Care Code Est Pt Level 3 (60948) Diagnoses Primary osteoarthritis of left hip M16.12 Osteoarthritis type: primary
== END 2024-04-10 11:52 | disposition home or self-care (01) ==
PROVIDERS: PCP Internal Medicine Geriatric Medicine; Visit Provider Physician Assistant
DX: M16.12 Unilateral primary osteoarthritis, left hip (principal)
CPT/HCPCS: 99213

== ENCOUNTER → 2024-04-10 09:23 | Outpatient (BNVA) | payer OTHER, SELFPAY | PROVIDERS: PCP Internal Medicine Geriatric Medicine; Visit Provider Physician Assistant | DX: M16.12 Unilateral primary osteoarthritis, left hip (principal) | CPT/HCPCS: 99212 ==

== ENCOUNTER → 2024-06-29 09:00 | Outpatient (BNV) | payer OTHER, SELFPAY | PROVIDERS: Visit Provider Clinical Nurse Specialist Psychiatric/Mental Health | DX: F33.2 Major depressive disorder, recurrent severe without psychotic features (principal) | CPT/HCPCS: 90867; 90868; 99499 ==

== ENCOUNTER 2024-07-20 09:00 | Outpatient (RCR) | payer OTHER, SELFPAY ==
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
--- NOTE | 2024-05-21 16:52 | HO.TMSDAILY2 ---
TMS Daily Progress Note Daily TMS Progress Note Date of Service: 05/20/24 Week #: 1 Treatment #(07-16): 1 PHQ-9 Pre-Treatment (07-13): 21 PHQ-9 Most Recent (07-13): 20 Reviewed: TMS Tech Note Reviewed Verification: I have reviewed the TMS Recreation Programmer Note and agree with the contents. The patient remains a candidate to continue TMS treatment per protocol. Assessment and Plan (1) Major depressive disorder, recurrent severe without psychotic features: Status: Acute (2) Chronic post-traumatic stress disorder (PTSD): Status: Acute Plan initial mapping completed with minimal difficulty 1 st tx completed
--- NOTE | 2024-05-21 16:56 | P.PNPS_ITS ---
TMS Daily Progress Note Daily TMS Progress Note Date of Service: 05/21/24 Week #: 1 Treatment #(07-16): 2 PHQ-9 Pre-Treatment (07-13): 21 PHQ-9 Most Recent (07-13): 20 Reviewed: TMS Tech Note Reviewed Verification: I have reviewed the TMS Power Plant Operator Apprentice Note and agree with the contents. The patient remains a candidate to continue TMS treatment per protocol. Assessment and Plan (1) Major depressive disorder, recurrent severe without psychotic features: Status: Acute (2) Chronic post-traumatic stress disorder (PTSD): Status: Acute Plan second tx completed without difficulty
--- NOTE | 2024-05-28 21:17 | HO.TMSDAILY2 ---
TMS Daily Progress Note Daily TMS Progress Note Date of Service: 05/22/24 Week #: 1 Treatment #(07-16): 3 PHQ-9 Pre-Treatment (07-13): 21 PHQ-9 Most Recent (07-13): 20 Reviewed: TMS Tech Note Reviewed Verification: I have reviewed the TMS Artist Blacksmith Note and agree with the contents. The patient remains a candidate to continue TMS treatment per protocol. Assessment and Plan (1) Major depressive disorder, recurrent severe without psychotic features: Status: Acute (2) Chronic post-traumatic stress disorder (PTSD): Status: Acute Plan cont tx plan pt tolerating tx
--- NOTE | 2024-05-28 21:24 | P.PNPS_ITS ---
TMS Daily Progress Note Daily TMS Progress Note Date of Service: 05/25/24 Week #: 1 Treatment #(07-16): 4 PHQ-9 Pre-Treatment (07-13): 21 PHQ-9 Most Recent (07-13): 20 Reviewed: TMS Tech Note Reviewed Verification: I have reviewed the TMS Laser Print Operator Note and agree with the contents. The patient remains a candidate to continue TMS treatment per protocol. Assessment and Plan (1) Major depressive disorder, recurrent severe without psychotic features: Status: Acute (2) Chronic post-traumatic stress disorder (PTSD): Status: Acute Plan cont tx plan pt tolerating tx no c/o side effects
--- NOTE | 2024-05-28 21:30 | HO.TMSDAILY2 ---
TMS Daily Progress Note Daily TMS Progress Note Date of Service: 05/26/24 Week #: 1 Treatment #(07-16): 5 PHQ-9 Pre-Treatment (07-13): 21 PHQ-9 Most Recent (07-13): 20 Reviewed: TMS Tech Note Reviewed Verification: I have reviewed the TMS Blow Up Operator Note and agree with the contents. The patient remains a candidate to continue TMS treatment per protocol. Assessment and Plan (1) Major depressive disorder, recurrent severe without psychotic features: Status: Acute (2) Chronic post-traumatic stress disorder (PTSD): Status: Acute Plan cont tx plan pt tolerating tx no c/o side effects has been preoccupied with fear of election results inc mt as tolerated
--- NOTE | 2024-05-28 21:40 | HO.TMSDAILY2 ---
TMS Daily Progress Note Daily TMS Progress Note Date of Service: 05/27/24 Week #: 2 Treatment #(07-16): 6 PHQ-9 Pre-Treatment (07-13): 21 PHQ-9 Most Recent (07-13): 17 Reviewed: TMS Tech Note Reviewed Verification: I have reviewed the TMS Workers Compensation Attorney Note and agree with the contents. The patient remains a candidate to continue TMS treatment per protocol. Assessment and Plan (1) Major depressive disorder, recurrent severe without psychotic features: Status: Acute (2) Chronic post-traumatic stress disorder (PTSD): Status: Acute Plan cont tx plan pt tolerating tx no c/o side effects feeling bettter
--- NOTE | 2024-05-28 21:51 | P.PNPS_ITS ---
TMS Daily Progress Note Daily TMS Progress Note Date of Service: 05/28/24 Week #: 2 Treatment #(07-16): 7 PHQ-9 Pre-Treatment (07-13): 21 PHQ-9 Most Recent (07-13): 17 Reviewed: TMS Tech Note Reviewed Verification: I have reviewed the TMS Forge Shop Machine Repairer Note and agree with the contents. The patient remains a candidate to continue TMS treatment per protocol. Assessment and Plan (1) Major depressive disorder, recurrent severe without psychotic features: Status: Acute (2) Chronic post-traumatic stress disorder (PTSD): Status: Acute Plan cont tx plan pt tolerating tx no c/o side effects feeling bettter mt % cont to inc
--- NOTE | 2024-06-11 09:57 | P.PNPS_ITS ---
TMS Daily Progress Note Daily TMS Progress Note Date of Service: 06/01/24 Week #: 2 Treatment #(07-16): 8 PHQ-9 Pre-Treatment (07-13): 21 PHQ-9 Most Recent (07-13): 17 Reviewed: TMS Tech Note Reviewed Verification: I have reviewed the TMS Embedded Software Test Engineer Note and agree with the contents. The patient remains a candidate to continue TMS treatment per protocol. Assessment and Plan (1) Major depressive disorder, recurrent severe without psychotic features: Status: Acute (2) Chronic post-traumatic stress disorder (PTSD): Status: Acute Plan cont tx plan pt tolerating tx no c/o side effects feeling bettter mt % cont to inc
--- NOTE | 2024-06-11 09:58 | HO.TMSDAILY2 ---
TMS Daily Progress Note Daily TMS Progress Note Date of Service: 06/02/24 Week #: 2 Treatment #(07-16): 9 PHQ-9 Pre-Treatment (07-13): 21 PHQ-9 Most Recent (07-13): 17 Reviewed: TMS Tech Note Reviewed Verification: I have reviewed the TMS Commissioning Agent Note and agree with the contents. The patient remains a candidate to continue TMS treatment per protocol. Assessment and Plan (1) Major depressive disorder, recurrent severe without psychotic features: Status: Acute Plan Pt 120 mt has anxiety catastrophic thinking re presidential turnover
--- NOTE | 2024-06-11 10:02 | P.PNPS_ITS ---
TMS Daily Progress Note Daily TMS Progress Note Date of Service: 06/03/24 Week #: 2 Treatment #(07-16): 10 PHQ-9 Pre-Treatment (07-13): 21 PHQ-9 Most Recent (07-13): 16 Reviewed: TMS Tech Note Reviewed Verification: I have reviewed the TMS Executive Recruiter Note and agree with the contents. The patient remains a candidate to continue TMS treatment per protocol. Assessment and Plan (1) Major depressive disorder, recurrent severe without psychotic features: Status: Acute Plan tolerating tx cont plan of care
--- NOTE | 2024-06-11 10:05 | P.PNPS_ITS ---
TMS Daily Progress Note Daily TMS Progress Note Date of Service: 06/04/24 Week #: 3 Treatment #(07-16): 11 PHQ-9 Pre-Treatment (07-13): 21 PHQ-9 Most Recent (07-13): 16 Reviewed: TMS Tech Note Reviewed Verification: I have reviewed the TMS Multimedia Journalist Note and agree with the contents. The patient remains a candidate to continue TMS treatment per protocol. Assessment and Plan (1) Major depressive disorder, recurrent severe without psychotic features: Status: Acute Plan cont plan of care
--- NOTE | 2024-06-11 10:09 | P.PNPS_ITS ---
TMS Daily Progress Note Daily TMS Progress Note Date of Service: 06/05/24 Week #: 3 Treatment #(07-16): 12 PHQ-9 Pre-Treatment (07-13): 21 PHQ-9 Most Recent (07-13): 16 Reviewed: TMS Tech Note Reviewed Verification: I have reviewed the TMS Bag Printer Note and agree with the contents. The patient remains a candidate to continue TMS treatment per protocol. Assessment and Plan (1) Major depressive disorder, recurrent severe without psychotic features: Status: Acute Plan still tolerating tx does have sig anxiety ongoing no c/o side effects
--- NOTE | 2024-06-11 10:23 | HO.TMSDAILY2 ---
TMS Daily Progress Note Daily TMS Progress Note Date of Service: 06/09/24 Week #: 3 Treatment #(07-16): 13 PHQ-9 Pre-Treatment (07-13): 21 PHQ-9 Most Recent (07-13): 16 Reviewed: TMS Tech Note Reviewed Verification: I have reviewed the TMS Middle School Teacher Note and agree with the contents. The patient remains a candidate to continue TMS treatment per protocol. Assessment and Plan (1) Major depressive disorder, recurrent severe without psychotic features: Status: Acute Plan pt anxious re holidays tolerating tx
--- NOTE | 2024-06-12 09:56 | HO.TMSDAILY2 ---
TMS Daily Progress Note Daily TMS Progress Note Date of Service: 06/11/24 Week #: 3 Treatment #(07-16): 14 PHQ-9 Pre-Treatment (07-13): 21 PHQ-9 Most Recent (07-13): 18 Reviewed: TMS Tech Note Reviewed Verification: I have reviewed the TMS Pneudraulic Systems Mechanic Note and agree with the contents. The patient remains a candidate to continue TMS treatment per protocol. Assessment and Plan (1) Major depressive disorder, recurrent severe without psychotic features: Status: Acute (2) Chronic post-traumatic stress disorder (PTSD): Status: Acute Plan pt with concern re anxiety stuttering obsessional catastrophic thinking will discuss r/l tx cbt
--- NOTE | 2024-06-12 10:00 | HO.TMSDAILY2 ---
TMS Daily Progress Note Daily TMS Progress Note Date of Service: 06/12/24 Week #: 3 Treatment #(07-16): 15 PHQ-9 Pre-Treatment (07-13): 21 PHQ-9 Most Recent (07-13): 18 Reviewed: TMS Tech Note Reviewed Verification: I have reviewed the TMS Securities Underwriter Note and agree with the contents. The patient remains a candidate to continue TMS treatment per protocol. Assessment and Plan (1) Major depressive disorder, recurrent severe without psychotic features: Status: Acute (2) Chronic post-traumatic stress disorder (PTSD): Status: Acute Plan Patient seen in psychiatric follow-up. His mood is depressed and anxious tends to ruminate. Very worried about the future and current government situation. Had an episode where he was talking with his brother where he was stuttering briefly on the phone appeared to be related stress no cognitive or other side effects noted from TMS and literature search no increased stuttering in relationship to TMS noted .we discussed the use of right left treatment for the combination of depression and anxiety coverage in some literature.. CBT handout discussed and strategies with patient also.
--- NOTE | 2024-06-16 15:48 | P.PNPS_ITS ---
TMS Daily Progress Note Daily TMS Progress Note Date of Service: 06/15/24 Week #: 3 Treatment #(07-16): 16 PHQ-9 Pre-Treatment (07-13): 21 PHQ-9 Most Recent (07-13): 16 Reviewed: TMS Tech Note Reviewed Verification: I have reviewed the TMS Field Research Assistant Note and agree with the contents. The patient remains a candidate to continue TMS treatment per protocol. Assessment and Plan (1) Major depressive disorder, recurrent severe without psychotic features: Status: Acute Plan continue plan ofcare encourage cbt strategies along with tms
--- NOTE | 2024-06-16 15:51 | P.PNPS_ITS ---
TMS Daily Progress Note Daily TMS Progress Note Date of Service: 06/16/24 Week #: 4 Treatment #(07-16): 17 PHQ-9 Pre-Treatment (07-13): 21 PHQ-9 Most Recent (07-13): 16 Reviewed: TMS Tech Note Reviewed Verification: I have reviewed the TMS Web Content Director Note and agree with the contents. The patient remains a candidate to continue TMS treatment per protocol. Assessment and Plan (1) Major depressive disorder, recurrent severe without psychotic features: Status: Acute Plan continue plan ofcare encourage cbt strategies along with tms tolerating tx
--- NOTE | 2024-06-26 15:29 | HO.TMSDAILY2 ---
TMS Daily Progress Note Daily TMS Progress Note Date of Service: 06/18/24 Week #: 4 Treatment #(07-16): 18 PHQ-9 Pre-Treatment (07-13): 21 PHQ-9 Most Recent (07-13): 16 Reviewed: TMS Tech Note Reviewed Verification: I have reviewed the TMS Business Solutions Analyst Note and agree with the contents. The patient remains a candidate to continue TMS treatment per protocol. Assessment and Plan (1) Major depressive disorder, recurrent severe without psychotic features: Status: Acute Plan Negative cognitive programming beginng to challenge tolerating tx
--- NOTE | 2024-06-26 15:31 | P.PNPS_ITS ---
TMS Daily Progress Note Daily TMS Progress Note Date of Service: 06/25/24 Week #: 5 Treatment #(07-16): 23 PHQ-9 Pre-Treatment (07-13): 21 PHQ-9 Most Recent (07-13): 18 Reviewed: TMS Tech Note Reviewed Verification: I have reviewed the TMS Wastewater Treatment Operator Note and agree with the contents. The patient remains a candidate to continue TMS treatment per protocol. Assessment and Plan (1) Major depressive disorder, recurrent severe without psychotic features: Status: Acute Plan Patient somewhat more conscious regarding effects of perseverative thinking on the election presidency catastrophic thinking regarding the future
--- NOTE | 2024-06-26 15:31 | HO.TMSDAILY2 ---
TMS Daily Progress Note Daily TMS Progress Note Date of Service: 06/19/24 Week #: 4 Treatment #(07-16): 19 PHQ-9 Pre-Treatment (07-13): 21 PHQ-9 Most Recent (07-13): 16 Reviewed: TMS Tech Note Reviewed Verification: I have reviewed the TMS Fabricator Foam Rubber Note and agree with the contents. The patient remains a candidate to continue TMS treatment per protocol. Assessment and Plan (1) Major depressive disorder, recurrent severe without psychotic features: Status: Acute Plan Needs help with cognitive coaching tolerating TMS relaxation video during treatment
--- NOTE | 2024-06-26 15:31 | HO.TMSDAILY2 ---
TMS Daily Progress Note Daily TMS Progress Note Date of Service: 06/22/24 Week #: 4 Treatment #(07-16): 20 PHQ-9 Pre-Treatment (07-13): 21 PHQ-9 Most Recent (07-13): 18 Reviewed: TMS Tech Note Reviewed Verification: I have reviewed the TMS Food Assembler Commissary Kitchen Note and agree with the contents. The patient remains a candidate to continue TMS treatment per protocol. Assessment and Plan (1) Major depressive disorder, recurrent severe without psychotic features: Status: Acute Plan Patient has some irritability dysphoria and frustration that he has not yet feeling better given reassurance education may benefit from re mapping
--- NOTE | 2024-06-26 15:31 | HO.TMSDAILY2 ---
TMS Daily Progress Note Daily TMS Progress Note Date of Service: 06/23/24 Week #: 5 Treatment #(07-16): 21 PHQ-9 Pre-Treatment (07-13): 21 PHQ-9 Most Recent (07-13): 18 Reviewed: TMS Tech Note Reviewed Verification: I have reviewed the TMS Commission Sales Associate Note and agree with the contents. The patient remains a candidate to continue TMS treatment per protocol. Assessment and Plan (1) Major depressive disorder, recurrent severe without psychotic features: Status: Acute Plan Patient with some intrusive thoughts regarding recent election and what it may mean tolerating treatment left right treatment
--- NOTE | 2024-06-26 15:31 | HO.TMSDAILY2 ---
TMS Daily Progress Note Daily TMS Progress Note Date of Service: 06/24/24 Week #: 5 Treatment #(07-16): 22 PHQ-9 Pre-Treatment (07-13): 21 PHQ-9 Most Recent (07-13): 18 Reviewed: TMS Tech Note Reviewed Verification: I have reviewed the TMS Senior Lead Java Developer Note and agree with the contents. The patient remains a candidate to continue TMS treatment per protocol. Assessment and Plan (1) Major depressive disorder, recurrent severe without psychotic features: Status: Acute Plan Patient continues tolerate treatment clearly may need re mapping urge a break from political media
--- NOTE | 2024-06-29 09:58 | HO.TMSDAILY2 ---
TMS Daily Progress Note Daily TMS Progress Note Date of Service: 06/29/24 Week #: 4 Treatment #(07-16): 24 PHQ-9 Pre-Treatment (-): 21 PHQ-9 Most Recent (07-13): 18 AMBER-7 Pre-Treatment (0-21): 18 AMBER-7 Most Recent (0-21): 14 Q-LES-Q-SF Most Recent: MT 0.71 33 50 Reviewed: TMS Tech Note Reviewed Verification: I have reviewed the TMS Buckle Sorter Note and agree with the contents. The patient remains a candidate to continue TMS treatment per protocol. Assessment and Plan (1) Major depressive disorder, recurrent severe without psychotic features: Status: Acute Plan continue plan of care; tolerating TMS; continue TMS treatments
--- NOTE | 2024-06-29 17:20 | P.PNPS_ITS ---
TMS Daily Progress Note Daily TMS Progress Note Date of Service: 06/29/24 Week #: 5 Treatment #(-): 25 PHQ-9 Pre-Treatment (-): 21 PHQ-9 Most Recent (07-13): 15 AMBER-7 Pre-Treatment (0-21): 18 AMBER-7 Most Recent (0-21): 13 Q-LES-Q-SF Most Recent: MT 0.71 33 50 Reviewed: TMS Tech Note Reviewed Verification: I have reviewed the TMS Process Owner Note and agree with the contents. The patient remains a candidate to continue TMS treatment per protocol. Assessment and Plan (1) Major depressive disorder, recurrent severe without psychotic features: Status: Acute (2) Chronic post-traumatic stress disorder (PTSD): Status: Acute
--- NOTE | 2024-06-30 17:10 | HO.TMSDAILY2 ---
TMS Daily Progress Note Daily TMS Progress Note Date of Service: 06/30/24 Week #: 6 Treatment #(-): 26 PHQ-9 Pre-Treatment (-): 21 PHQ-9 Most Recent (07-13): 15 AMBER-7 Pre-Treatment (0-21): 18 AMBER-7 Most Recent (0-21): 13 Q-LES-Q-SF Most Recent: MT 0.71 Q: 33 50 Reviewed: TMS Tech Note Reviewed Verification: I have reviewed the TMS Postdoctoral Research Associate Note and agree with the contents. The patient remains a candidate to continue TMS treatment per protocol. Assessment and Plan (1) Major depressive disorder, recurrent severe without psychotic features: Status: Acute (2) Chronic post-traumatic stress disorder (PTSD): Status: Acute Plan continue TMS tx plan
--- NOTE | 2024-07-02 16:32 | HO.TMSDAILY2 ---
TMS Daily Progress Note Daily TMS Progress Note Date of Service: 07/01/24 Week #: 6 Treatment #(-): 27 PHQ-9 Pre-Treatment (1-): 21 PHQ-9 Most Recent (07-13): 15 AMBER-7 Pre-Treatment (0-21): 18 AMBER-7 Most Recent (0-21): 13 Q-LES-Q-SF Most Recent: MT 0.71 Q: 33 50 Reviewed: TMS Tech Note Reviewed Verification: I have reviewed the TMS Warehouse Administrative Assistant Note and agree with the contents. The patient remains a candidate to continue TMS treatment per protocol.
--- NOTE | 2024-07-03 15:21 | HO.TMSDAILY2 ---
TMS Daily Progress Note Daily TMS Progress Note Date of Service: 07/03/24 Week #: 6 Treatment #(-): 29 PHQ-9 Pre-Treatment (-): 21 PHQ-9 Most Recent (07-13): 15 AMBER-7 Pre-Treatment (0-21): 18 AMBER-7 Most Recent (0-21): 13 CGI-I Most Recent: 2 = Much Improved Q-LES-Q-SF Most Recent: MT 0.71 Q: 33 50 Reviewed: TMS Tech Note Reviewed Verification: I have reviewed the TMS Vmware Consultant Note and agree with the contents. The patient remains a candidate to continue TMS treatment per protocol. Assessment and Plan (1) Major depressive disorder, recurrent severe without psychotic features: Status: Acute (2) Chronic post-traumatic stress disorder (PTSD): Status: Acute Plan Continue TMS tx plan
--- NOTE | 2024-07-08 13:14 | HO.TMSDAILY2 ---
TMS Daily Progress Note Daily TMS Progress Note Date of Service: 07/06/24 Week #: 6 Treatment #(-): 29 PHQ-9 Pre-Treatment (-): 21 PHQ-9 Most Recent (07-13): 15 AMBER-7 Pre-Treatment (0-21): 18 AMBER-7 Most Recent (0-21): 13 CGI-I Most Recent: 2 = Much Improved Q-LES-Q-SF Most Recent: MT 0.71 Q: 33 50 Reviewed: TMS Tech Note Reviewed Verification: I have reviewed the TMS Parts Identification Technician Note and agree with the contents. The patient remains a candidate to continue TMS treatment per protocol. Assessment and Plan (1) Major depressive disorder, recurrent severe without psychotic features: Status: Acute (2) Chronic post-traumatic stress disorder (PTSD): Status: Acute Plan Continue TMS tx plan
--- NOTE | 2024-07-10 18:30 | HO.TMSDAILY2 ---
TMS Daily Progress Note Daily TMS Progress Note Date of Service: 07/08/24 Week #: 6 Treatment #(-): 29 PHQ-9 Pre-Treatment (-): 21 PHQ-9 Most Recent (07-13): 15 AMBER-7 Pre-Treatment (0-21): 18 AMBER-7 Most Recent (0-21): 13 CGI-I Most Recent: 2 = Much Improved Q-LES-Q-SF Most Recent: MT 0.71 Q: 33 50 Reviewed: TMS Tech Note Reviewed Verification: I have reviewed the TMS Educational Technologist Note and agree with the contents. The patient remains a candidate to continue TMS treatment per protocol. Assessment and Plan (1) Major depressive disorder, recurrent severe without psychotic features: Status: Acute (2) Chronic post-traumatic stress disorder (PTSD): Status: Acute Plan Continue TMS tx plan
--- NOTE | 2024-07-13 18:06 | HO.TMSDAILY2 ---
TMS Daily Progress Note Daily TMS Progress Note Date of Service: 07/14/24 Week #: 7 Treatment #(-): 33 PHQ-9 Pre-Treatment (-): 21 PHQ-9 Most Recent (07-13): 16 AMBER-7 Pre-Treatment (0-21): 18 AMBER-7 Most Recent (0-21): 13 CGI-I Most Recent: 2 = Much Improved Q-LES-Q-SF Most Recent: MT 0.71 Q: 33 50 Reviewed: TMS Tech Note Reviewed Verification: I have reviewed the TMS Compound Coating Machine Offbearer Note and agree with the contents. The patient remains a candidate to continue TMS treatment per protocol. Assessment and Plan (1) Major depressive disorder, recurrent severe without psychotic features: Status: Acute (2) Chronic post-traumatic stress disorder (PTSD): Status: Acute Plan pt appears brighter tolerating tx
--- NOTE | 2024-07-15 21:56 | P.PNPS_ITS ---
TMS Daily Progress Note Daily TMS Progress Note Date of Service: 07/16/24 Week #: 8 Treatment #(07-16): 34 PHQ-9 Pre-Treatment (-): 21 PHQ-9 Most Recent (07-13): 16 AMBER-7 Pre-Treatment (0-21): 18 AMBER-7 Most Recent (0-21): 13 CGI-I Most Recent: 2 = Much Improved Q-LES-Q-SF Most Recent: MT 0.71 Q: 33 50 Reviewed: TMS Tech Note Reviewed Verification: I have reviewed the TMS Predatory Animal Hunter Note and agree with the contents. The patient remains a candidate to continue TMS treatment per protocol. Assessment and Plan (1) Major depressive disorder, recurrent severe without psychotic features: Status: Acute (2) Chronic post-traumatic stress disorder (PTSD): Status: Acute Plan phq 9 some imp . Pt does have gay affect appears less preoccupied election issues may be contaminating the data
--- NOTE | 2024-07-31 14:26 | P.PNPS_ITS ---
TMS Daily Progress Note Daily TMS Progress Note Date of Service: 07/10/24 Week #: 7 Treatment #(07-16): 32 PHQ-9 Pre-Treatment (-): 21 PHQ-9 Most Recent (07-13): 15 AMBER-7 Pre-Treatment (0-21): 18 AMBER-7 Most Recent (0-21): 17 CGI-I Most Recent: 3 = Minimally Improved Q-LES-Q-SF Most Recent: MT 0.71 Q: 33 50 Reviewed: TMS Tech Note Reviewed Verification: I have reviewed the TMS Tariff Publishing Agent Note and agree with the contents. The patient remains a candidate to continue TMS treatment per protocol. Assessment and Plan (1) Major depressive disorder, recurrent severe without psychotic features: Status: Acute Plan continue TMS tx plan
--- NOTE | 2024-08-11 12:25 | HO.TMSDAILY2 ---
TMS Daily Progress Note Daily TMS Progress Note Date of Service: 06/26/24 Week #: 5 Treatment #(07-16): 24 PHQ-9 Pre-Treatment (-): 21 PHQ-9 Most Recent (07-13): 18 AMBER-7 Pre-Treatment (0-21): 18 AMBER-7 Most Recent (0-21): 14 CGI-I Most Recent: 2 = Much Improved Q-LES-Q-SF Most Recent: MT 0.71 Q: 33 50 Reviewed: TMS Tech Note Reviewed Verification: I have reviewed the TMS Durable Medical Equipment Repairer Note and agree with the contents. The patient remains a candidate to continue TMS treatment per protocol. Assessment and Plan (1) Major depressive disorder, recurrent severe without psychotic features: Status: Acute
--- NOTE | 2024-08-11 12:26 | P.PNPS_ITS ---
TMS Daily Progress Note Daily TMS Progress Note Date of Service: 07/02/24 Week #: 6 Treatment #(-): 28 PHQ-9 Pre-Treatment (-): 21 PHQ-9 Most Recent (07-13): 15 AMBER-7 Pre-Treatment (0-21): 18 AMBER-7 Most Recent (0-21): 13 CGI-I Most Recent: 2 = Much Improved Q-LES-Q-SF Most Recent: MT 0.71 Q: 33 50 Reviewed: TMS Tech Note Reviewed Verification: I have reviewed the TMS Network Technology Instructor Note and agree with the contents. The patient remains a candidate to continue TMS treatment per protocol. Assessment and Plan (1) Major depressive disorder, recurrent severe without psychotic features: Status: Acute
--- NOTE | 2024-08-19 23:43 | HO.TMSDAILY2 ---
TMS Daily Progress Note Daily TMS Progress Note Date of Service: 07/17/24 Week #: 8 Treatment #(07-16): 35 PHQ-9 Pre-Treatment (-): 16 PHQ-9 Most Recent (07-13): 15 AMBER-7 Pre-Treatment (0-21): 18 AMBER-7 Most Recent (0-21): 13 CGI-I Most Recent: 2 = Much Improved Q-LES-Q-SF Most Recent: MT 0.71 Q: 33 50 Reviewed: TMS Tech Note Reviewed Verification: I have reviewed the TMS Kitchen Operator Note and agree with the contents. The patient remains a candidate to continue TMS treatment per protocol. Assessment and Plan (1) Major depressive disorder, recurrent severe without psychotic features: Status: Acute (2) Chronic post-traumatic stress disorder (PTSD): Status: Acute Plan TOLERATING TX SEEEMS IMPROVED
--- NOTE | 2024-08-19 23:46 | P.PNPS_ITS ---
TMS Daily Progress Note Daily TMS Progress Note Date of Service: 07/20/24 Week #: 8 Treatment #(07-16): 36 PHQ-9 Pre-Treatment (-): 20 PHQ-9 Most Recent (07-13): 10 AMBER-7 Pre-Treatment (0-21): 18 AMBER-7 Most Recent (0-21): 13 CGI-I Most Recent: 2 = Much Improved Q-LES-Q-SF Most Recent: MT 0.71 Q: 33 50 Reviewed: TMS Tech Note Reviewed Verification: I have reviewed the TMS Manager Center Note and agree with the contents. The patient remains a candidate to continue TMS treatment per protocol. Assessment and Plan (1) Major depressive disorder, recurrent severe without psychotic features: Status: Acute (2) Chronic post-traumatic stress disorder (PTSD): Status: Acute Plan Patient completed course of 36 treatments we did discuss possibility of continuation if his insurance would allow since he seems to be a late responder. No significant side effects from treatment. Patient feels significantly better he was somewhat skeptical
== END 2024-07-20 12:00 | disposition home or self-care (01) ==
LOC: HO.PTMS 09:00
PROVIDERS: Visit Provider Psychiatry & Neurology Psychiatry
DX: F33.2 Major depressive disorder, recurrent severe without psychotic features (principal); F43.12 Post-traumatic stress disorder, chronic
CPT/HCPCS: 90867; 90868

== ENCOUNTER 2025-03-12 11:22 | Outpatient (REF) | payer OTHER, SELFPAY ==
--- OUTSIDE RECORDS SUMMARY | 2025-03-09 15:45 | XMS_ITS | Encounter Summary ---
Author Organization [employer] Address [address] [facility] [address] [place] [address] Care Team Providers Care Fire Investigator Name Role Phone Name, Jose VALLE Primary Care Provider [phone] Encounter Details Date Type Department Care Team ([facility] st Contact Info) Description 03/09/2025 3:45 PM EDT Office Visit [facility] [address] [place], [place] [phone] Charlotte Novak MD [address] [place] [address] Ear discomfort, left (Primary Dx); Dietary counseling; Exercise counseling; Class 3 severe obesity due to excess calories with serious comorbidity and body mass index (BMI) of 40.0 to 44.9 in adult; Lower urinary tract symptoms (LUTS); Encounter for immunization Social History Tobacco Use Types Packs/Day Years Used Date Smoking Tobacco: Never Smokeless Tobacco: Never Alcohol Use Standard Drinks/Week Comments Never 0 (1 standard drink = 0.6 oz pur e alcohol) Depression Answer Date Recorded Patient Health Questionnaire-9 Score 15 10/02/2024 Patient Health Questionnaire-9 Score 15 10/02/2024 Last PHQ-9: Questionnaire Data Not on file 0 10/02/2024 Housing Stability Answer Date Recorded What is your housing situation today? I have housing today, but I am worried about losing housing in the future 10/02/[address] you li ve. Do you have problems with any of the following? None of the above 10/02/2024 Food Insecurity Answer Date Recorded Within the past 12 months, y ou worried that your food would run out before you got money to buy more: Often true 10/02/2024 Within the past 12 months,th e food you bought just didn't last and you didn't have enough money to get more: Never True Transportation Answer Date Recorded In the past 12 months, has l ack of transportation kept you from medical appts, meetings, work or from getting things needed for daily living? No 10/02/2024 Utilities Answer Date Recorded In the past 12 months, has t he [employer], gas, oil or water company threatened to shut off services in your home? No 10/02/2024 Depression Answer Date Recorded Patient Health Questionnaire-2 Score 4 10/02/2024 Internet Access Answer Date Recorded Internet Access Q1 Yes 10/02/2024 Internet Access Q2 Not on file 10/02/2024 Sex and Gender Information Value Date Recorded Sex Assigned at Male 04/16/2022 10:32 AM EDT Legal Sex Male 10:32 AM EDT Gender Identity Male 04/16/2022 10:32 AM EDT Sexual Orientation Straight 04/16/2022 10 :32 AM EDT documented as of this encounter Last Filed Vital Signs Vital Sign Reading Time Taken Comments Blood Pressure 136/88 03/09/2025 3:09 PM EDT Pulse 86 03/09/2025 3:09 PM EDT Temperature 36.4 C (97.5 F) 03/09/2025 3:09 PM EDT Respiratory Rate 16 03/09/2025 3:09 PM EDT Oxygen Saturation 96% 03/09/2025 3:09 PM EDT Inhaled Oxygen Concentration - - Weight 104 kg (228 lb 9.6 oz) 03/09/2025 3:09 PM EDT Height 175.3 cm (5' 9 ) 03/09/2025 3:09 PM EDT Body Mass Index 33.76 03/09/2025 3:09 PM EDT documented in this encounter Plan of Treatment Scheduled Orders Name Type Priority Associated Diagnoses Orde r Schedule Urinalysis, Complete, with Reflex to Culture Lab Routine Lower urinary tract symptoms (LUTS) Expected: 03/09/2025 (Approximate), Expires: 03/09/2026 documented as of this encounter Visit Diagnoses Diagnosis Ear discomfort, left- Primary Dietary counseling Dietary surveillance and counseling Exercise counseling Class 3 severe obesity due to excess calories with serious comorbidity and body mass index (BMI) of 40.0 to 44.9 in adult Lower urinary tract symptoms (LUTS) Encounter for immunization documented in this encounter Additional Health Concerns Assessment Noted Time PHQ-9 Depression Total Score: 15 10/02/ 025 10:21 AM EDT documented as of this encounter Care Teams Fire Investigator Relationship Specialty Start Date End Date Name, MD Jose [address] [place] [id number] PCP - General Family Medicine 11/21/21 documented as of this encounter
--- OUTSIDE RECORDS SUMMARY | 2025-03-12 13:11 | XMS_ITS | Clinical Summary ---
Author Organization [employer] Address [address] [facility] 7[address] [place] [address] Care Team Providers Care Hobbing Machine Operator Name Role Phone Name, Jose VALLE Primary Care Provider [phone] Allergies Active Allergy Reactions Criticality Noted Date Comments Penicillin G Rash Low 06/04/2017 Other reaction(s): Hives Medications * This document contains information received from the source organization and may not represent a complete record from that organization. aspirin 81 MG EC tablet Take 1 tablet by mouth at bed time. Active finasteride (Proscar) 5 MG tablet Take 5 mg by mouth in the morning. 11/23/19 23 Active acetaminophen (Tylenol) 500 MG tablet Take 2 tablets (1,000 mg) by mouth every 6 (six) hours if needed for moderate pain or fever for up to 25 doses. 40 tablet 11/20/19 24 Active busPIRone (Buspar) 30 MG tablet Take 30 mg by mouth 2 times daily. 02/11/20 24 Active buPROPion XL (Wellbutrin XL) 300 MG 24 hr tablet Take 300 mg by mouth Once per day. 02/11/20 24 Active omega-3 (Fish Oil) 1200 MG capsuleIndicati ons:On statin therapy Take 1 capsule (1,200 mg) by mouth 3 times daily. 84 capsule 11 05/08/20 24 Active metFORMIN (Glucophage) 500 MG tabletIndicatio ns:Type 2 diabetes mellitus without complication, without long-term current use of insulin (CMS/HCC) TAKE 2 TABLETS BY MOUTH TWICE A DAY IN THE MORNING AND EVENING WITH MEALS 120 tablet 11 08/28/19 25 Active losartan (Cozaar) 50 MG tabletIndicatio ns:Essential hypertension TAKE 1 TABLET (50 MG) BY MOUTH IN THE MORNING. 30 tablet 11 08/28/19 25 Active pravastatin (Pravachol) 80 MG tabletIndicatio ns:Hypertriglyc eridemia Take 1 tablet (80 mg) by mouth in the evening. 90 tablet 1 08/27/19 25 Active mometasone (Nasonex) 50 MCG/ACT nasal spray Administer 1-2 sprays into each nostril at bedtime. 17 g 2 12/30/19 25 026 Active azelastine (Astelin) 0.1 % nasal spray Administer 1 spray into each nostril 2 times daily. Use in each nostril as directed 30 mL 12/30/19 25 Active Dulaglutide 1.5 MG/0.5ML solution auto-injectorIn dications:Type 2 diabetes mellitus without complication, with long-term current use of insulin ([facility]),Left hip pain,Obesity (BMI 30-39.9) Inject 1.5 mg under the skin 1 (one) time per week. 0.5 mL 4 01/09/20 25 Active gabapentin (Neurontin) 300 MG capsule Take 1 capsule (300 mg) by mouth at bedtime. 30 capsule 03/03/20 25 026 Active loratadine (Claritin) 10 MG tablet Take 1 tablet (10 mg) by mouth Once per day. 90 tablet 3 03/09/20 25 025 Active gabapentin (Neurontin) 300 MG capsule Take 1 capsule (300 mg) by mouth at bedtime. 30 capsule 03/12/20 24 025 Discontinued(R eorder (will not trigger notification to Pharmacy)) cetirizine (ZyrTEC) 10 MG tabletIndicatio ns:Seasonal allergic rhinitis due to pollen Take 1 tablet (10 mg) by mouth Once per day. 90 tablet 12/30/19 25 025 Discontinued Active Problems Problem Noted Date Diagnosed Date Postnasal drip 12/29/2024 Assessment & Plan (12/29/2024 2:47 PM EDT): Advised to use nasal saline lavage i.e. nasal irrigation. Use Nasonex daily and Astelin at night. Rx Zyrtec and follow-up with PCP Advised to quit THC smokes and wear facemask to prevent fumes inhalation Left retinal detachment 10/02/2024 Osteoarthritis of lumbar spine 03/02/2024 Abnormal liver function tests 07/09/2022 Acquired hammer toe of right foot 07/09/2022 Disorder of nervous system due to type 2 diabete s mellitus 07/09/2022 Diabetic polyneuropathy asso ciated with type 2 diabetes mellitus 07/09/2022 Raised prostate specific antigen 07/09/2022 Microalbuminuric diabetic nephropathy 08/13/2017 Seasonal allergic rhinitis 08/13/2017 Umbilical hernia without obstruction or gangrene 06/25/2017 Tubular adenoma of colon 06/25/2017 Essential hypertension 06/04/2017 Hypertriglyceridemia 06/04/2017 Obesity (BMI 30-39.9) 06/04/2017 Obstructive sleep apnea syndrome 06/04/2017 Severe recurrent major depre ssion without psychotic features 06/04/2017 Type 2 diabetes mellitus without complication Resolved Problems Problem Noted Date Diagnosed Date Resolved Date Encounter for screening colonoscopy 03/11/2023 02/18/2025 Inhibited male orgasm 10/14/20172023 Encounters * This document contains information received from the source organization and may not represent a complete record from that organization. Date Type Department Care Team Description 03/09/2025 3:45 PM EDT Office Visit [facility] MED[facility]INE [address] [place] [phone] Charlotte Novak MD Ear discomfort, left (Primary Dx); Dietary counseling; Exercise counseling; Class 3 severe obesity due to excess calories with serious comorbidity and body mass index (BMI) of 40.0 to 44.9 in adult; Lower urinary tract symptoms (LUTS); Encounter for immunization 03/09/2025 Travel 03/03/2025 Refill [facility] [address] [place], [place] [phone] Name, MD Jose 02/24/2025 Telephone [facility] [address] [place] [address] Rose Stark RN 02/22/2025 Telephone [facility] [address] [place] [address] Rose Stark RN 02/22/2025 Telephone [facility] [address] [place] [phone] Rose Stark RN 02/18/2025 9:00 AM EDT Office Visit [address] [address] Jose Farley MD Type 2 diabetes mellitus with diabetic neuropathy, without long-term current use of insulin ([facility]) (Primary Dx); Microalbuminuric diabetic nephropathy ([facility]); Essential hypertension; Colonoscopy refused 02/18/2025 Travel 02/17/2025 Telephone [facility] [address] [place] [address] Jose Farley MD Chart Prep 02/11/[address] [address] Jose Farley MD Call Back Request 01/26/[address] [address] Jose Farley MD inquiry 01/08/2025 Refill [facility] [address] [place] [address] Jose Farley MD Type 2 diabetes mellitus without complication, with long-term current use of insulin ([facility]); Left hip pain; Obesity (BMI 30-39.9) 01/08/2025 Refill [facility] [address] [place] [address] Jose Farley MD 12/29/2024 3:00 PM EDT Office Visit [facility] [address] [place] [phone] Oelsya Mar MD Postnasal drip (Primary Dx); Seasonal allergic rhinitis due to pollen 12/29/2024 Travel from Last 3 Months Immunizations Immunization Administration Dates Next Due Influenza injectable quadriv alent preservative free 03/11/2023,04/13/2022,02/17/2021,02/14,03/05/2018 Influenza, IIV3, injectable 03/28/2016,1 07/25/2013,04/16/2013,07/10 Influenza, Injectable, MDCK, preservative free 05/03/2015 Influenza, seasonal, injecta ble, preservative free 03/09/2025,03/02/2024 Pfizer Covid-19 Vaccine 12+ 07/09/2023 Pneumococcal Conjugate PCV 20 03/02/2024 Pneumococcal Polysaccharide PPSV23 03/28/2016 Tdap 01/20/2021,10/10/2010 Family History Medical History Relation Name Comments Macular degeneration Father Prostate cancer Father Brain cancer Mother Relation Name Status Comments Father Mother Social History Tobacco Use Types Packs/Day Years Used Date Smoking Tobacco: Never Smokeless Tobacco: Never Tobacco Cessation:Counseling Given: Not Answered Alcohol Use Standard Drinks/Week Comments Never 0 [...] the past 12 months, has t he electric, gas, oil or water company threatened to [...] Orientation Straight 04/16/2022 10 :32 AM EDT Last Filed Vital Signs Vital Sign Reading [...] Mass Index 33.76 03/09/2025 3:09 PM EDT Plan of Treatment Health Maintenance Due Date Last Done Comments CT Colonography 1965 FIT DNA/Cologuard 1965 FIT 1965 FOBT 1965 HIV Screening 1965 Sigmoidoscopy 1965 Hepatitis C Screening 09/25/1983 Hepatitis A Vaccines (1 of 2 - Risk 2-dose series) 1984 Hepatitis B Vaccines (1 of 3 - 19+ 3-dose series) 1984 Zoster Vaccines (1 of 2) 09/25/2015 Eye Exam 07/19/2024 06/18/2024, 02/15, 03/04/2024, Additional history exists Colonoscopy 10/11/2024 10/12/2019 Colorectal Cancer Screening 10/11/2024 Lipid Panel 11/07/2024 11/08/2023, 10/17, 10/07/2020 COVID-19 Vaccine ( season) 2025 07/09/2023, 08/23/2022, 11/21/2021, Additional history exists Depression Monitoring 04/03/2025 10/02/2024, 025 Alcohol/Substance Use Screening 07/08/2025 07/08/2024 Diabetes: Hemoglobin A1C 08/18/2025 025, 07/09/2024, 11/04/2023, Additional history exists Disability Screening 10/02/2025 10/02/2024 SDOH Screening 10/02/2025 10/02/2024 Diabetes: Foot Exam 02/18/2026 02/18/2025, 02/18/2025, 02/18/2025, Additional history exists Tobacco Screening 03/09/2026 03/09/2025 DTaP/Tdap/Td Vaccines (5 - Td or Tdap) 01/20/2031 01/20/2021, 10/10/2010, 10/10/2010, Additional history exists RSV Patients and Patients Aged 60 years or older (1 - 1-dose 75+ series) 2040 Pneumococcal Vaccine: 50+ Years Completed 03/02/2024, 03/28/2016 Influenza Vaccine Completed 03/09/2025, , 03/11/2023, Additional history exists HIB Vaccines Aged Out No longer eligi ble based on patient's age to complete this topic HPV Vaccines Aged Out No longer eligi ble based on patient's age to complete this topic IPV Vaccines Aged Out No longer eligi ble based on patient's age to complete this topic Meningococcal B Vaccine Aged Out No l onger eligible based on patient's age to complete this topic Meningococcal Vaccine Aged Out No jack paige eligible based on patient's age to complete this topic RSV under 20 months Aged Out No longe r eligible based on patient's age to complete this topic Rotavirus Vaccines Aged Out No longer eligible based on patient's age to complete this topic Procedures Procedure Name Priority Date/Time Associated Diagnosis Comments POCT GLYCATED HEMOGLOBIN, TOTAL Routine 02/18/2025 9:20 AM EDT Type 2 diabetes mellitus with diabetic neuropathy, without long-term current use of insulin ([facility]) POCT GLUCOSE Routine 02/18/2025 9:20 AM EDT Type 2 diabetes mellitus with diabetic neuropathy, without long-term current use of insulin ([facility]) HM DIABETES EYE EXAM Routine 06/18/2024 LIPID PANEL, STANDARD Routine 11/08/2023 10:58 AM EDT Type 2 diabetes mellitus with diabetic neuropathy, without long-term current use of insulin ([facility]) Diabetic polyneuropathy associated with type 2 diabetes mellitus ([facility]) COLONOSCOPY Routine 10/12/2019 3:10 PM EDT from Last 3 Months or Most Recently Relevant to Health Maintenance Results * POCT Hgb A1c (02/18/2025 9:20 AM EDT) Hemoglobin A1C 5.5 4.0 - 5.7 % QC Media Lot # [id number] Lot# Expiration Date [id number] Blood 02/18/2025 9:20 AM EDT us Jose Farley MD POINT OF CARE TEST ENTER/EDIT OR DERABLES Final Result * POCT Glucose (02/18/2025 9:20 AM EDT) Glucose Blood, POC 67 60 - 200 mg/dL QC Media Lot # [id number] Lot# Expiration Date [id number] Blood Capillary blood specimen / Unknown 02/18/2025 9:20 AM EDT us Jose Farley MD POINT OF CARE TEST ENTER/EDIT OR DERABLES Final Result * (ABNORMAL) Diabetes Eye Exam (06/18/2024) Eye Exam Abnormal(A ) Normal Comment:1 month f/u 06/18/2024 us Jose Farley MD HEALTH MAINTENANCE Edited Result - Final * (ABNORMAL) Lipid Panel, Standard (11/08/2023 10:58 AM EDT) Triglycerides 170(H) <150 mg/dL [facility] Comment:Desirable Triglyceri de: less than 150 mg/dLBorderline High Triglyceride 150-199 mg/dLHigh Triglyceride: 200-499 mg/dLVery High Triglyceride: greater than or equal to 5OO mg/dL Cholesterol 123 <200 mg/dL [facility] Comment:Desirable Cholestero l: less than 200 mg/dLBorderline High Cholesterol: 200-239 mg/dLHigh Cholesterol: greater than 239 mg/dL LDL Cholesterol Calculated 47 <100 mg/dL [facility] Comment:Desirable LDL: less than 100 mg/dLNear Optimal/Above Optimal LDL: 110- 129 mg/dLBorderline High LDL: 130-159 mg/dLHigh LDL: 160-189 mg/dLVery High LDL: greater than or equal to 190 mg/dL HDL Cholesterol 42 >40 mg/dL [facility] Comment:Desirable HDL: great er than 40 mg/dL Note: This HDL assay may give artificially low results in patients with liver disease. Blood Venous blood specimen / Unknown 11/08/2023 10:58 AM EDT 11/08/2023 1:13 PM EDT Jose Farley MD LAB BLOOD ORDERABLES Final Resul t [facility] [address] [place] [phone] * Hm Colonoscopy (10/12/2019 3:10 PM EDT) Colonoscopy Normal Normal Narrative Ana Rosa Frazier - 10/12/2019 3:10 PM EDT Recommended 5 year follow up Historical Provider HEALTH MAINTENANCE Final Result from Last 3 Months or Most Recently Relevant to Health Maintenance Insurance [facility]ARE < [address] JO[address]O KEARNEY [id number] Care Teams Hobbing Machine Operator Relationship Specialty Start Date End Date Name, MD Jose [address] [place] [id number] PCP - General Family Medicine 11/21/21
--- OUTSIDE RECORDS SUMMARY | 2025-03-12 13:11 | XMS_ITS | Encounter Summary ---
Author Organization [employer] Address [address] [facility] [address] [place] [address] Care Team Providers Care Noise Tester Name Role Phone Name, Jose VALLE Primary Care Provider [phone] Encounter Details Date Type Department Care Team (Latest Contact Info) Description 03/09/2025 Travel Social History Tobacco Use Types Packs/Day Years [...] the past 12 months, has t he [employer], gas, oil or water company threatened to [...] AM EDT documented as of this encounter Plan of Treatment Not on file documented as of this encounter Visit Diagnoses Not on filedocumented in this encounter Additional Health Concerns Assessment Noted Time PHQ-9 Depression Total Score: 15 025 10:21 AM EDT documented as of this encounter Care Teams Noise Tester Relationship Specialty Start Date End Date Name, MD Jose [address] [place] [address] PCP - General Family Medicine 11/21/21 documented as of this encounter
--- OUTSIDE RECORDS SUMMARY | 2025-03-12 13:11 | XMS_ITS | Encounter Summary ---
Author Organization [employer] Address [address] [facility] 7t [place] [address] Care Team Providers Care Counselor/Art Therapist Name Role Phone Name, Jose VALLE Primary Care Provider [phone] Reason for Visit * Reason Onset Date Comments Medication Question 04/10/2023 Encounter Details Date Type Department Care Team ([facility] st Contact Info) Description 04/10/2023 Telephone [facility] MEDICINE [address] [place], [place] [id number] Name, MD Jose [address] [place] [address] Medication Question Social History Tobacco Use Types Packs/Day Years Used Date Smoking Tobacco: Never Smokeless Tobacco: Never Alcohol Use Standard Drinks/Week Comments Never 0 (1 standard drink = 0.6 oz pur e alcohol) Depression Answer Date Recorded Patient Health Questionnaire-9 Score 12 07/09/2022 Housing Stability Answer Date Recorded What is your housing situation today? I have tamanna stauffer 04/10/[address] you li ve. Do you have problems with any of the following? None of the above 04/10/2023 Food Insecurity Answer Date Recorded Within the past 12 months, y ou worried that your food would run out before you got money to buy more: Never True 04/10/2023 Within the past 12 months,th e food you bought just didn't last and you didn't have enough money to get more: Never True Transportation Answer Date Recorded In the past 12 months, has l ack of transportation kept you from medical appts, meetings, work or from getting things needed for daily living? No 04/10/2023 Utilities Answer Date Recorded In the past 12 months, has t he electric, gas, oil or water company threatened to shut off services in your home? No 04/10/2023 Depression Answer Date Recorded Patient Health Questionnaire-2 Score 4 07/09/2022 Sex and Gender Information Value Date Recorded Sex Assigned at Male 04/16/2022 10:32 AM EDT Legal Sex Male 10:32 AM EDT Gender Identity Male 04/16/2022 10:32 AM EDT Sexual Orientation Straight 04/16/2022 10 :32 AM EDT documented as of this encounter Miscellaneous Notes * Telephone Encounter - Fox Chamberlain RN - 04/10/2023 4:10 PM EDT [facility] for approval. * Telephone Encounter - Roberta Gonzalez RN - 04/10/2023 3:10 PM EDT TC to pt regarding Flonase spray. Pt states he has chronic runny nose, and itchy ears. States he thinks his audiology claim was denied. Pt informed, per record, pt is to f/u with [facility] for list of in- plan providers he agrees to this. Pt said he has not been taking previously prescribed Zyrtec andwould -if it was covered by prescription. He goes to [facility] at [address] for lower cost Rx. He states he would try the Zyrtec and f/u with audiology for his itchy ears. Pt told request for Zyrtec will be forwarded to . * Telephone Encounter - Reg Willson - 04/10/2023 11:52 AM EDT Tc from patient calling in regards of the medication fluticasone (Flonase) 50 MCG/ACT nasal spray states its not working and feels that its causing other underling problems. documented in this encounter Plan of Treatment Not on file documented as of this encounter Visit Diagnoses Not on filedocumented in this encounter Additional Health Concerns Assessment Noted Time PHQ-9 Depression Total Score: 12 023 1:33 PM EST documented as of this encounter Care Teams Counselor/Art Therapist Relationship Specialty Start Date End Date Name, MD Jose [address] [place] [address] PCP - General Family Medicine 11/21/21 documented as of this encounter
--- OUTSIDE RECORDS SUMMARY | 2025-03-12 13:11 | XMS_ITS | Encounter Summary ---
Author Organization [employer] Address [address] [facility] 7t [place] [address] Care Team Providers Care Embroidery Finisher Name Role Phone Name, Jose VALLE Primary Care Provider [phone] Reason for Visit * Reason Onset Date Comments Medication Question 03/06/2024 Encounter Details Date Type Department Care Team ([facility] st Contact Info) Description 03/06/2024 Telephone [facility] MEDICINE [address] [place], [place] [phone] Name, MD Jose [address] [place] [address] Medication Question Social History Tobacco Use Types Packs/Day Years Used Date Smoking Tobacco: Never Smokeless Tobacco: Never Alcohol Use Standard Drinks/Week Comments Never 0 (1 standard drink = 0.6 oz pur e alcohol) Depression Answer Date Recorded Patient Health Questionnaire-9 Score 13 11/04/2023 Patient Health Questionnaire-9 Score 13 11/04/2023 Last PHQ-9: Questionnaire Data Not on file 0 11/04/2023 Housing Stability Answer Date Recorded What is your housing situation today? I have [place]ann[place] stauffer 04/10/[address] you [...] Date Recorded Patient Health Questionnaire-2 Score 4 11/04/2023 Sex and Gender Information Value Date Recorded Sex Assigned at Male 04/16/2022 10:32 AM EDT Legal Sex Male 10:32 AM EDT Gender Identity Male 04/16/2022 10:32 AM EDT Sexual Orientation Straight 04/16/2022 10 :32 AM EDT documented as of this encounter Miscellaneous Notes * Telephone Encounter - Megha Dunne RN - 03/06/2024 11:02 AM EDT Noted. Preferred pharmacy updated. * Telephone Encounter - Félix Mcgrath - 03/06/2024 10:18 AM EDT Tc from pt stating he's had all his medication transferred from the [facility] to the [facility] Pt was advised to call to have gabapentin (Neurontin) 300 MG capsule sent over to [facility] as well. If any questions you can contact pt at [phone]. documented in this encounter Plan of Treatment Not on file documented as of this encounter Visit Diagnoses Not on filedocumented in this encounter Additional Health Concerns Assessment Noted Time PHQ-9 Depression Total Score: 13 024 2:25 PM EDT documented as of this encounter Care Teams Embroidery Finisher Relationship Specialty Start Date End Date Name, MD Jose [address] [place] [address] PCP - General Family Medicine 11/21/21 documented as of this encounter
--- OUTSIDE RECORDS SUMMARY | 2025-03-12 13:11 | XMS_ITS | Encounter Summary ---
Author Organization [employer] Address [address] [facility] [address] [facility] [address] 7t [place] [address] Care Team Providers Care Manager Business Planning Name Role Phone Name, Jose VALLE Primary Care Provider [phone] Reason for Visit * Reason Comments Med Refill Encounter Details Date Type Department Care Team ([facility] st Contact Info) Description 01/08/2025 Refill [facility] [address] [place] [address] Name, MD Jose [address] [place] [address] Social History Tobacco Use Types Packs/Day Years [...] documented as of this encounter Care Teams Manager Business Planning Relationship Specialty Start Date End Date Name, MD Jose [address] [place] [address] PCP - General Family Medicine 11/21/21 documented as of this encounter
--- OUTSIDE RECORDS SUMMARY | 2025-03-12 13:11 | XMS_ITS | Encounter Summary ---
Author Organization [employer] Address [address] [facility] 7 [place] [address] Care Team Providers Care Laborer Pipelines Name Role Phone Name, Jose VALLE Primary Care Provider [phone] Reason for Visit * Reason Onset Date Comments Referral 10/23/2022 Encounter Details Date Type Department Care Team ([facility] st Contact Info) Description 10/23/2022 Telephone [facility] MEDICINE [address] [place], [place] [phone] Name, MD Jose [address] [place] [address] Referral Social History Tobacco Use Types Packs/Day Years Used Date Smoking Tobacco: Never Smokeless Tobacco: Never Depression Answer Date Recorded Patient Health Questionnaire-9 Score 12 07/09/2022 Depression Answer Date Recorded Patient Health Questionnaire-2 Score 4 07/09/2022 Sex and Gender Information Value Date Recorded Sex Assigned at Male 04/16/2022 10:32 AM EDT Legal Sex Male 10:32 AM EDT Gender Identity Male 04/16/2022 10:32 AM EDT Sexual Orientation Straight 04/16/2022 10 :32 AM EDT COVID-19 Exposure Response Date Recorded In the last 10 days, have yo u been in contact with someone who was confirmed or suspected to have Coronavirus/COVID-19? No / Unsure 10/12/2022 1:08 PM EDT documented as of this encounter Miscellaneous Notes * Telephone Encounter - Missy Nichole - 10/23/2022 2:27 PM EDT TC from Pt calling requesting a new referral for a Urologist no details on location, But pt doesn'tlike [facility]rologist [facility] [place] [facility] Farley documented in this encounter Plan of Treatment Not on file documented as of this encounter Visit Diagnoses Diagnosis Raised prostate specific antigen- Primary Elevated prostate specific antigen (PSA) documented in this encounter Additional Health Concerns Assessment Noted Time PHQ-9 Depression Total Score: 12 023 1:33 PM EST documented as of this encounter Care Teams Laborer Pipelines Relationship Specialty Start Date End Date Name, MD Jose [address] [place] [address] PCP - General Family Medicine 11/21/21 documented as of this encounter
--- OUTSIDE RECORDS SUMMARY | 2025-03-12 13:11 | XMS_ITS | Encounter Summary ---
Author Organization [employer] Address [address] [facility] 7t [place] [address] Care Team Providers Care Water Mechanic Name Role Phone Name, Jose VALLE Primary Care Provider [phone] Reason for Visit * Reason Comments Med Refill Encounter Details Date Type Department Care Team ([facility] st Contact Info) Description 04/01/2024 Refill [facility] MEDICINE [address] [place], [place] [phone] Name, MD Jose [address] [place] [address] Essential hypertension; Type 2 diabetes mellitus without complication, without long-term current use of insulin ([facility] Seasonal allergic rhinitis due to pollen Social History Tobacco Use Types Packs/Day Years [...] as of this encounter Visit Diagnoses Diagnosis Essential hypertension Unspecified essential hypertension Type 2 diabetes mellitus without complication, without long-term current use of insulin ([facility]) Seasonal allergic rhinitis due to pollen documented in this encounter Additional Health Concerns Assessment Noted Time PHQ-9 Depression Total Score: 13 024 2:25 PM EDT documented as of this encounter Care Teams Water Mechanic Relationship Specialty Start Date End Date Name, MD Jose [address] [place] [address] PCP - General Family Medicine 11/21/21 documented as of this encounter
--- OUTSIDE RECORDS SUMMARY | 2025-03-12 13:11 | XMS_ITS | Encounter Summary ---
Author Organization [employer] Address [address] [facility] [address] [place] [address] Care Team Providers Care Solvent Station Attendant Name Role Phone Name, Jose VALLE Primary Care Provider [phone] Reason for Visit * Reason Onset Date Comments Referral 08/14/2022 Encounter Details Date Type Department Care Team ([facility] st Contact Info) Description 08/14/2022 Telephone [facility] MEDICINE [address] [place], [place] [phone] Name, MD Jose [address] [place] [address] Referral Social History Tobacco Use Types Packs/Day [...] encounter Miscellaneous Notes * Telephone Encounter - Debby Quan RN - 08/21/2022 10:26 AM EST TC X2 to pt regarding message below. Unable to get call through as regeneration operator states call could not go through. Pt to return call PRN. * Telephone Encounter - Lizy Holt - 08/20/2022 10:35 AM EST Tc from pt returning call, Senior Supplier Quality Engineer attempted to gave information in regards to any hearing loss or earache, call disconnected. Please contact at [phone] * Telephone Encounter - Debby Quan RN - 08/15/2022 4:36 PM EST TC X1 to pt regarding message below. Pt with no known dx of hearing loss or anything that would warrant referral to Audiology. Pt would need to be seen prior to referral placement. LVM to return callfor triage. * Telephone Encounter - Yue Marr - 08/14/2022 11:59 AM EST Winston Qureshi pt urgent care physician assistant requesting a referral for an Epidemiologist for hearing. If any questions please reach pt at [phone] documented in this encounter Plan of Treatment Not on file documented as of this encounter Visit Diagnoses Not on filedocumented in this encounter Additional Health Concerns Assessment Noted Time PHQ-9 Depression Total Score: 12 023 1:33 PM EST documented as of this encounter Care Teams Solvent Station Attendant Relationship Specialty Start Date End Date Name, MD Jose [address] [place] [address] PCP - General Family Medicine 11/21/21 documented as of this encounter
--- OUTSIDE RECORDS SUMMARY | 2025-03-12 13:11 | XMS_ITS | Patient Health Record ---
Author Organization [facility] Address [address] [place] [address] Care Team Providers Care Buffing Wheel Raker Name Role Phone Name Jose VALLE Primary Care Provider Paul Hollingsworth Unavailable [phone] Allergies Allergen (clinical drug ingredient) Drug/Non Drug Allergy documented on EMR Reaction Allergy Type Onset Date Status Penicillin Hives Drug Allergy Active Reason For Referral No Information Medications Medication SIG (Take, Route, Frequency, Duration) Notes Start Date End Date Status buPROPion HCl Active Centrum Active Extra Depth Orthopedic Shoes (1 Pair) with Customized Heat Molded Multidensity Innersoles (3 Pair) as directed Dx: NIDDM/Polyneuropathy (E11.42), Hammertoe Foot Deformity (M20.41,M20.42), Preulcerative Skin Lesion(s) (L85.1 09/05/2020 Active Aspirin Active [place] 3 Active Vitamin C Active Losartan Potassium 50 MG 1 tablet Orally Once a day; Duration: 30 day(s) Active metFORMIN HCl 500 MG 1 tablet with a arnav l Orally Once a day; Duration: 30 day(s) Active Cetirizine HCl 10 MG 1 tablet Orally Onc e a day; Duration: 30 day(s) Active hydrOXYzine HCl 50 MG as directed Orally Twice a day Active Social History Tobacco Use: Social History Observation Description Date Details (start date - stop date) Never Smoker NA - NA Tobacco Use/Smoking Question Answer Notes Are you a: nonsmoker Additional Findings: Tobacco Non-User Current no n-smoker Alcohol Screen Question Answer Notes Did you have a drink contain ing alcohol in the past year? Yes How often did you have a dri nk containing alcohol in the past year? 2 to 3 times a week (3 points) Points 3 Interpretation Negative Tobacco use other than smoking: Question Answer Notes Are you an other tobacco user? No Problems Problem Type SNOMED Code ICD Code Onset Dates Problem Status W/U Status Risk Notes Problem Acquired hammer toe of right foot (0041544885615143 ) Other hammer toe(s) (acquired), right foot (M20.41) Active confirmed Problem Acquired hammer toe of left foot (8657084941753277 ) Other hammer toe(s) (acquired), left foot (M20.42) Active confirmed Problem Polyneuropathy due to type 2 diabetes mellitus (527328030) Type 2 diabetes mellitus with diabetic polyneuropathy (E11.42) Active confirmed Plan Of Treatment Pending Test Test Name Order Date [id number] NAIL, 6 OR MORE 09/05/2020 [id number] SKIN LESIONS, 2 TO 4 09/06/19 21 Insurance Providers Payer Name Payer Address Payer Phone Subscriber Number Group Number Insured Name Patient Relationship to Insured Coverage Start Date Coverage End Date [facility] [employer] Claims [address] [place] [id number] Otilio Ivey Self - patient is the insured Medical (General) History Medical History History ICD Code Chicken pox type II diabetes Depression High blood pressure Numbness Psychiatric disorder Surgical History Surgery Date(Month/Year) Inguinal hernia repair 1993 Navel hernia 03/2019 Left ear canal 1977
--- OUTSIDE RECORDS SUMMARY | 2025-03-12 13:11 | XMS_ITS | Encounter Summary ---
Author Organization [employer] Address [address] [facility] 7t [place] [address] Care Team Providers Care Splitter Head Name Role Phone Name, Jose VALLE Primary Care Provider [phone] Reason for Visit * Reason Onset Date Comments Durable Medical Equipment 09/28/2024 Encounter Details Date Type Department Care Team ([facility] st Contact Info) Description 09/28/2024 Telephone [facility] MEDICINE [address] [place], [place] [phone] Name, MD Jose [address] [place] [address] Durable Medical Equipment Social History Tobacco Use Types Packs/Day Years [...] encounter Miscellaneous Notes * Telephone Encounter - Carito Kunz RN - 09/29/2024 1:59 PM EDT Tc from pt requesting tub seat. To be sent to: . TC placed to pt who states that he feels as if he needs ROOF BOLTER OPERATOR services more than just a shower and will speak to about this at his upcoming appointment. 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 Will fax shower chair DME to [facility] * Telephone Encounter - Yaritza Vizcaino - 09/28/2024 2:15 PM EDT Tc from pt requesting tub seat. To be sent to: . documented in this encounter Plan of Treatment Not on file documented as of this encounter Visit Diagnoses Not on filedocumented in this encounter Additional Health Concerns Assessment Noted Time PHQ-9 Depression Total Score: 13 024 2:25 PM EDT documented as of this encounter Care Teams Splitter Head Relationship Specialty Start Date End Date Name, MD Jose [address] [place] [address] PCP - General Family Medicine 11/21/21 documented as of this encounter
--- OUTSIDE RECORDS SUMMARY | 2025-03-12 13:11 | XMS_ITS | Encounter Summary ---
Author Organization [employer] Address [address] [facility] [address] [facility] [address] 7[address] [place] [address] Care Team Providers Care Industrial Maintenance Electrician Name Role Phone Name, Jose VALLE Primary Care Provider [phone] Encounter Details Date Type Department Care Team ([facility] st Contact Info) Description 07/05/2022 Telephone [facility] MEDICINE [address] [place] [address] Name, MD Jose [address] [place] [address] Social History Tobacco Use Types Packs/Day Years Used Date Smoking Tobacco: Never Assessed Depression Answer Date Recorded Patient Health Questionnaire-9 [...] Diagnoses Not on filedocumented in this encounter Care Teams Industrial Maintenance Electrician Relationship Specialty Start Date End Date Name, MD Jose [address] [place] [address] PCP - General Family Medicine 11/21/21 documented as of this encounter
--- OUTSIDE RECORDS SUMMARY | 2025-03-12 13:11 | XMS_ITS | Encounter Summary ---
Author Organization [employer] Address [address] [facility] 7t [place] [address] Care Team Providers Care Director Hospice Operations Name Role Phone Name, Jose VALLE Primary Care Provider [phone] Encounter Details Date Type Department Care Team ([facility] st Contact Info) Description 11/01/2022 Abstract [facility] MEDICINE [address] [place], [place] [phone] Name, MD Jose [address] [place] [address] Social History Tobacco Use Types Packs/Day Years [...] PM EDT documented as of this encounter Plan of Treatment Not on file documented as of this encounter Procedures Procedure Name Priority Date/Time Associated Diagnosis Comments HM COLONOSCOPY Routine 10/12/2019 3:10 PM EDT documented in this encounter Results * Hm Colonoscopy (10/12/2019 3:10 PM EDT) Colonoscopy Normal Normal Narrative Ana Rosa Frazier - 10/12/2019 3:10 PM EDT Recommended 5 year follow up us Historical Provider HEALTH MAINTENANCE Final Result documented in this encounter Visit Diagnoses Not on filedocumented in this encounter Additional Health Concerns Assessment Noted Time PHQ-9 Depression Total Score: 12 023 1:33 PM EST documented as of this encounter Care Teams Director Hospice Operations Relationship Specialty Start Date End Date Name, MD Jose [address] [place] [address] PCP - General Family Medicine 11/21/21 documented as of this encounter
--- OUTSIDE RECORDS SUMMARY | 2025-03-12 13:11 | XMS_ITS | Encounter Summary ---
Author Organization [employer] Address [address] [facility] 7t [place] [address] Care Team Providers Care Hand Ii Cutter Name Role Phone Name, Jose VALLE Primary Care Provider [phone] Reason for Visit * Reason Comments Med Refill Encounter Details Date Type Department Care Team ([facility] st Contact Info) Description 12/13/2023 Refill [facility] MEDICINE [address] [place], [place] [phone] Name, MD Jose [address] [place] [address] On statin therapy Social History Tobacco Use Types Packs/Day Years [...] as of this encounter Visit Diagnoses Diagnosis On statin therapy documented in this encounter Additional Health Concerns Assessment Noted Time PHQ-9 Depression Total Score: 13 024 2:25 PM EDT documented as of this encounter Care Teams Hand Ii Cutter Relationship Specialty Start Date End Date Name, MD Jose [address] [place] [address] PCP - General Family Medicine 11/21/21 documented as of this encounter
--- OUTSIDE RECORDS SUMMARY | 2025-03-12 13:11 | XMS_ITS | Encounter Summary ---
Author Organization [employer] Address [address] [facility] 7t [place] [address] Care Team Providers Care Machine Maintenance Name Role Phone Name, Jose VALLE Primary Care Provider [phone] Reason for Visit * Reason Comments Med Refill Encounter Details Date Type Department Care Team ([facility] st Contact Info) Description 12/02/2023 Refill [facility] MEDICINE [address] [place], [place] [phone] Name, MD Jose [address] [place] [address] On statin therapy Social History Tobacco Use [...] documented as of this encounter Care Teams Machine Maintenance Relationship Specialty Start Date End Date Name, MD Jose [address] [place] [address] PCP - General Family Medicine 11/21/21 documented as of this encounter
[2025-03-12 13:23] LABS: Appearance Urine Clear; Glucose Urine UA Negative (Negative); PH 6.0 (5.0-9.0); Specific Gravity - Urine 1.015 (1.005-1.025)
[2025-03-12 13:59] LABS: Alanine Aminotransferase 32 U/L (0-40); Albumin Level 4.5 g/dL (3.5-5.0); Alkaline Phosphatase 69 U/L (39-117); Anion Gap 11 (12-20); Aspartate Amino Transferase 25 U/L (5-37); Blood Urea Nitrogen 17 mg/dL (9-16); Calcium 9.1 mg/dL (8.4-10.2); Carbon Dioxide 27 mmol/L (22-29); Chloride 106 mmol/L (96-108); Cholesterol 154 mg/dL (<200); Estimated Glomerular Filt Rate > 60; HDL Cholesterol 47 mg/dL (>40); Potassium 4.1 mmol/L (3.3-5.1); Sodium 140 mmol/L (135-145); Total Protein 6.9 g/dL (6.5-8.0); Triglycerides 106 mg/dL (<150)
[2025-03-12 14:14] LABS: Microalbum/Creatinine Ratio Ur 30.3 ug/mg cr (<30)
[2025-03-12 14:31] LABS: PSA,Total (Free>4and<10) 9.54 ng/mL (0.00-4.00)
[2025-03-16 10:04] LABS: Free Prostate Spec Ag 1.0 ng/mL; Percent Free Prostate Spec Ag 11 % (calc) (>25)
== END 2025-03-12 11:23 | disposition home or self-care (01) ==
LOC: HO.HHCL 11:22
PROVIDERS: Family Medicine; Urology; PCP Internal Medicine Geriatric Medicine; Visit Provider Internal Medicine Geriatric Medicine
DX: Z12.5 Encounter for screening for malignant neoplasm of prostate (principal); E11.21 Type 2 diabetes mellitus with diabetic nephropathy; E11.40 Type 2 diabetes mellitus with diabetic neuropathy, unspecified; I10 Essential (primary) hypertension; R97.20 Elevated prostate specific antigen [PSA]; R39.9 Unspecified symptoms and signs involving the genitourinary system
CPT/HCPCS: 36415; 80053; 80061; 81001; 82043; 82570; 84153; 84154

== ENCOUNTER 2025-05-06 12:47 | Outpatient (REF) | payer OTHER, SELFPAY ==
--- NOTE | ~2025-05-06 | FL_ITS ---
FLUOROSCOPIC LEFT HIP INTRA-ARTICULAR STEROID INJECTION INDICATIONS: Left hip pain. PROCEDURE: Risks, benefits, and possible complications were discussed with the patient. Informed consent was obtained. The patient was then placed supine on the fluoroscopy table. The left hip was localized with fluoroscopic guidance, and the overlying skin prepped and draped in normal sterile fashion. 1% buffered lidocaine was used for anesthesia. A 22-gauge spinal needle was used to access the hip joint. Intra-articular position of the needle within the hip joint was verified using a small amount of Omnipaque 300. A total of 8 mL (of a mixture of 2 mL 1% lidocaine, 40 mg Decadron, and 3 mL bupivacaine) was then injected into the hip joint. The needle was then removed and a Band-Aid was applied to the injection site. The patient tolerated the procedure well. There were no immediate complications. FL/FL Guided Asp or Inj Med Jt LT IMPRESSION: Successful Fluoroscopic left hip intra-articular steroid injection. No immediate complication. Electronically signed by: Yonatan Fletcher MD 05/06/2025 02:32 PM MARGARET SMITH
[2025-05-06] MEDS: BUPivacaine MPF 0.25 % 30 ML VIAL 12.5 ML SUBCUT (13:56)
[2025-05-06] MEDS: Lidocaine HCl 1 % 20 ML VIAL 3 ML SUBCUT (13:58)
[2025-05-06] MEDS: DEXAMETHASONE 40 MG PO (14:16)
--- OUTSIDE RECORDS SUMMARY | 2025-05-06 18:30 | XMS_ITS | Data Portability ---
Author Organization [employer] [facility], [facility] Address [address] [place] [address] Care Team Providers Care Precipitation Equipment Tender Name Role Phone [facility] Referring Provider Assessment Encounter Date Assessment Date Assessment LastModified by Organization Details LastModified Time 06/15/2023 06/15/2023 Viral bronchitis post covid, lungs are clear, has very hoarse cough that appears to originate from upper airway. Will administer prednisone 40 mg a day for five days, medic Lolita to give first dose now. [email or web address] Not available 06/15/2023 11:22:11 Plan of Treatment Reminders Order Date Submit Date Provider Last Modified By Organization Details Last Modified Time Details Appointments None recorded. Lab None recorded. Referral None recorded. Procedures None recorded. Surgeries None recorded. Imaging None recorded. Medication Orders prednisone 20 mg tablet 2022 023 [email or web address] Not available 12:40:42 prednisone 20 mg tablet 2022 023 [email or web address] Not available 12:40:50 Patient TargetsNo targets recorded. Patient InstructionsNo instructions recorded. Reason for Referral None Reported. Medical Equipment None Reported. Medications Name Sig Start Date Stop Date Status Note LastModified by Organization Details LastModified Time losartan 50 mg tablet TAKE 1 TABLET BY MOUTH EVERY MORNING active Not Available Not Available No t Available metformin 500 mg tablet TAKE 2 TABLETS BY MOUTH TWICE DAILY IN THE MORNING AND IN THE EVENING WITH MEALS active Not Available Not Available N ot Available cetirizine 10 mg tablet active Not Available Not Available Not Available prednisone 20 mg tablet TAKE 2 TABLETS BY MOUTH EVERY DAY FOR 4 DAYS DIRECTED active Not Available Not Available No t Available hydroxyzine HCl 50 mg tablet TAKE 1 TABLET BY MOUTH TWICE DAILY active Not Available Not Available No t Available pravastatin 80 mg tablet TAKE 1 TABLET BY MOUTH EVERY EVENING active Not Available Not Available No t Available tamsulosin 0.4 mg capsule active Not Available Not Available Not Available buspirone 10 mg tablet active Not Available Not Available No t Available levofloxacin 500 mg tablet TAKE 1 TABLET BY MOUTH DAY BEFORE PROCEDURE, DAY OF PROCEDURE AND DAY AFTER PROCEDURE active Not Available Not Available No t Available fluticasone propionate 50 mcg/actuatio n nasal spray,suspen pasha ADMINISTER 2 SPRAYS into each NOSTRIL EVERY MORNING. shake GENTLY. PRIME PUMP BEFORE first USE. CLEAN TIP AND replace cap AFTER each USE active Not Available Not Available No t Available finasteride 5 mg tablet TAKE 1 TABLET BY MOUTH EVERY DAY active Not Available Not Available No t Available buspirone 15 mg tablet active Not Available Not Available No t Available bupropion HCl XL 300 mg 24 hr tablet, extended release active Not Available Not Available Not Available bupropion HCl XL 150 mg 24 hr tablet, extended release active Not Available Not Available Not Available omega-3 fatty acids-fish oil 360 mg-1,200 mg capsule active Not Available Not Available Not Available Fish Oil 1,200 mg (144 mg-216 mg) capsule TAKE 1 CAPSULE BY MOUTH THREE TIMES DAILY active Not Available Not Available Not Available [facility] COVID-19 Ag Self Test kit TEST DIRECTED TODAY active Not Available Not Available No t Available Vitals Date Recorded Oxygen saturation Body temperature Heart rate Respiratory rate Systolic And Diastolic Provider Name and Address Organization Details Last Updated DateTime 3 98 % 98.3 [degF] 83 /min 20 /min 140/80 mm[Hg] Not Available [facility] - production 3 11:15:20 Social History None recorded. Functional Status None recorded. Mental Status None recorded. Family History Nothing Reported. Medical History No medical history recorded. Past Encounters Encounter ID Performer Location Encounter Start Date Encounter Closed Date Diagnosis/Indication Diagnosis SNOMED-CT Code Diagnosis ICD10 Code Diagnosis IMO Codes Diagnosis Note [id number] Susan Renee MD Main - [facility] [address] [place] [phone] 06/15/2023 11:15:17 12/31/2024 23:54:08 Upper respiratory infection 49227318 J06.9 with bronchitis causing cough. Medic prescribed 40 mg prednisone x 1, and he will finish a four day supply of 40 mg daily for four days LUng exam without wheeze and with good air entry Cough 04137115 R05.9 Health Concerns Section Related Observation LastModified by Organization Detai ls LastModified Time None Recorded Concern Status LastModified by Organization Details LastModified Time None Recorded Advance Directives Directive None Recorded Payers Insurance Date Sequence Insurance Name Policy Number Policy Strauss Covered Member ID Strauss Member ID Guarantor Name 01/01/2025 1 [facility] - DOS ON OR AFTER 2022 - DUAL ELIGIBLE - [facility] [employer] AND ONE CARE (MEDICARE REPLACEMENT/ADV ANTAGE - HMO) Otilio Ivey [id number] Otilio Ivey Notes Date Note Type Note Provider Name and Address Organization Details Recorded Time 06/15/2023 text/html HPI: mbr with complaints of uncontrolled cough unable to expectorate any Phlegm, slight increased SOB with exertion. denies any Fever chill. requesting [facility] visit. Protocol Used: Cough - Acute Non-Productive Protocol-Based Disposition: Consider [facility], [facility] Community clinician, MD/COMPUTER PROGRAMMER ANALYST triage, PCP, or Urgent Care Visit within 4 Hours Positive Triage Questions: * [1] MILD difficulty breathing (e.g., minimal/no SOB at rest, SOB with walking, pulse < 100) AND [2] still present when not coughing * [1] Continuous (nonstop) coughing interferes with work or school AND [2] no improvement using cough treatment per Care Advice Negative Triage Questions: * SEVERE difficulty breathing (e.g., struggling for each breath, speaks in single words) * [1] Rapid onset of cough AND [2] has hives * Coughing started suddenly after medicine, an allergic food or bee sting * [1] MODERATE difficulty breathing (e.g., speaks in phrases, SOB even at rest, pulse 100-120) AND [2] still present when not coughing * Fever > 103 F (39.4 C) .................. .................. .................. .................. .................. .................. .................. ............... [facility] Nurse Triage Notes (Deepika Walker): Comments: [facility] RN DID NOT NEED FURTHER INFO .................. .................. .................. .................. .................. .................. .................. ............... Supervisor [employer] Note From Lolita Ivey: [facility] Supervisor [employer] Bebe Ivey [facility]1 dispatched to a [facility] for a 57 yom C/O a cough X1 week. Upon arrival, the pt was ambulatory, DE [place] CRUZ X4, in no apparent distress. No tachypnea or dyspnea. He stated that he had a productive, wracking cough for a week, but that the chills had subsided. He reported that all of his S/S had been improving, but he had to take nyquil the night prior to sleep; reported that the cough kept him awake at night. He denied PETERS, dizziness, sore throat, CP, SOB, abd pain, N/V/D, or urinary S/S. Coarse lung sounds in upper ding bilaterally, air moving in bases. No pedal edema. Covid positive. [facility] consulted; pt was given 40 mg prednisone PO w/ rx as well. He was instructed to take tylenol PRN for body pain, and to use coricidin if he desired an OTC cough syrup. Red flags discussed at length. .................. .................. .................. .................. .................. .................. .................. ............... Disposition: Fulfilled Susan Renee MD [address] [facility],[address], [place], [phone], [facility] [employer] 06/15/2023 12:47:45
== END 2025-05-06 12:48 | disposition home or self-care (01) ==
LOC: HO.XRAY 12:47
PROVIDERS: PCP Internal Medicine Geriatric Medicine; Visit Provider Physician Assistant
DX: M16.12 Unilateral primary osteoarthritis, left hip (principal)
CPT/HCPCS: 20605; 77002; J0665; J2003; J8540; Q9967

== ENCOUNTER → 2025-05-06 12:50 | Outpatient (BNV) | payer OTHER, SELFPAY | PROVIDERS: PCP Internal Medicine Geriatric Medicine; Visit Provider Radiology Diagnostic Radiology | DX: M16.12 Unilateral primary osteoarthritis, left hip (principal) | CPT/HCPCS: 20605; 77002 ==